=== PATIENT | male | born 1975 | race Asian ===

== ENCOUNTER 2020-05-25 12:56 | Inpatient (IN) | payer SELFPAY ==
[~2020-05-25] VITALS: Ht 172.7 cm; Wt 80.9 kg
[2020-05-25] MEDS ORDERED: LEVETIRACETAM 500MG PREMIX 100 ML IV ONE (13:30)
[2020-05-25] MEDS ORDERED: SODIUM CHLORIDE 0.9% 1,000 ML IV ONE (13:30)
[2020-05-25] MEDS ORDERED: INSULIN REGULAR (HUMULIN R) UD 100 UNITS/ML SYR SUBCUT ONE ×2 (13:30→15:30)
[2020-05-25] MEDS ORDERED: DILTIAZEM HCL 5MG/ML 5ML VIAL IV ONE ×2 (13:30→15:30)
[2020-05-25] MEDS ORDERED: LORAZEPAM 2MG/ML CPJ IV ONE (13:30)
[2020-05-25] MEDS ORDERED: INSULIN REGULAR (HUMULIN R) 300UNITS/3ML VIAL SUBCUT NR (14:15)
[2020-05-25 14:22] LABS: BASOPHILS % 1.1 % (0.0-2.0); EOSINOPHILS % 9.9 % (0.0-5.0); HEMATOCRIT. 46.3 % (42.0-52.0); HEMOGLOBIN. 16.2 g/dL (14.0-18.0); LYMPHOCYTES % 29.2 % (20.0-50.0); MEAN CORPUSCULAR HEMOGLOBIN 29.8 pg (28.0-32.0); MEAN CORPUSCULAR VOLUME 84.9 fL (80.0-94.0); MONOCYTES % 5.6 % (2.0-8.0); NEUTROPHILS % 54.2 % (40.0-76.0); PLATELET 226 x1000/uL (130-400); RED BLOOD CELL COUNT 5.45 mill/uL (4.7-6.1)
[2020-05-25 14:28] LABS: CHLORIDE 93 mEq/L (98-107)
[2020-05-25 14:32] LABS: CLARITY URINE CLEAR (CLEAR); COLOR URINE YELLOW (YELLOW); KETONES URINE NEGATIVE (NEGATIVE); LEUKOCYTE ESTERASE URINE NEGATIVE (NEGATIVE); NITRITE URINE NEGATIVE (NEGATIVE); OCCULT BLOOD URINE 1+ (NEGATIVE); PH URINE 5.5 (4.5-8.0); PROTEIN URINE 3+ (NEGATIVE); SPECIFIC GRAVITY URINE 1.029 (1.005-1.030); UROBILINOGEN URINE 0.2 E.U./dL (0.2-1.0)
[2020-05-25 14:34] LABS: ETHANOL BLOOD < 10 mg/dL
[2020-05-25 14:41] LABS: INR 0.9; PARTIAL THROMBOPLASTIN TIME 23.3 sec (23.4-31.0); PROTHROMBIN TIME 9.9 sec (9.6-11.0)
[2020-05-25 15:15] LABS: *AMPHETAMINES SCREEN URINE NEGATIVE (NEGATIVE); *BARBITURATES SCREEN URINE NEGATIVE (NEGATIVE); *BENZODIAZEPINES SCREEN URINE PRESUMTIVE POSITIVE (NEGATIVE); *COCAINE SCREEN URINE NEGATIVE (NEGATIVE); CANNABINOID URINE SCREEN NEGATIVE (NEGATIVE); METHADONE URINE SCREEN NEGATIVE (NEGATIVE); OPIATES URINE SCREEN NEGATIVE (NEGATIVE); PHENCYCLIDINE URINE SCREEN NEGATIVE (NEGATIVE)
[2020-05-25] MEDS ORDERED: KCL 20MEQ/100ML PREMIX 100 ML IV ONE (15:30)
[2020-05-25] MEDS ORDERED: NITROGLYCERIN 50MG PREMIX 250 ML IV ONE ×2 (16:45→22:45)
[2020-05-25] MEDS ORDERED: INSULIN REGULAR (HUMULIN R) 300UNITS/3ML VIAL SUBCUT ONE (17:00)
[2020-05-25] MEDS ORDERED: ACETAMINOPHEN 650MG SUPP PR PRN (18:15)
[2020-05-25] MEDS ORDERED: ONDANSETRON HCL 4MG/2ML INJ IV PRN (18:15)
[2020-05-25] MEDS: LORAZEPAM 2MG/ML CPJ IV PRN (18:22)
[2020-05-25] MEDS: DEXT 5%/0.45% NACL KCL 10MEQ/L 1,000 ML IV SCH (20:00)
[2020-05-26] MEDS: LORAZEPAM 2MG/ML CPJ IV PRN ×2 (00:53→10:11)
[2020-05-26] MEDS ORDERED: MORPHINE SULFATE 2 MG/ML CPJ (NOT FOR IM USE) IV PRN (01:30)
[2020-05-26] MEDS: LABETALOL 5MG/ML SYR 20 MG/4 ML SYRINGE IV PRN ×2 (02:38→10:11)
[2020-05-26] MEDS ORDERED: NITROGLYCERIN 50MG PREMIX 250 ML IV SCH (02:45)
[2020-05-26 05:18] LABS: BASOPHILS % 0.2 % (0.0-2.0); HEMATOCRIT. 41.1 % (42.0-52.0); HEMOGLOBIN. 14.5 g/dL (14.0-18.0); LYMPHOCYTES % 8.4 % (20.0-50.0); MEAN CORPUSCULAR HEMOGLOBIN 29.8 pg (28.0-32.0); MEAN CORPUSCULAR VOLUME 84.7 fL (80.0-94.0); MEAN PLATELET VOLUME 7.8 fl (7.4-10.4); MONOCYTES % 5.7 % (2.0-8.0); NEUTROPHILS % 85.7 % (40.0-76.0); PLATELET 196 x1000/uL (130-400); RED BLOOD CELL COUNT 4.85 mill/uL (4.7-6.1); RED CELL DISTRIBUTION WIDTH 14.7 % (11.6-14.6)
[2020-05-26 05:27] LABS: CHLORIDE 99 mEq/L (98-107)
[2020-05-26 05:34] LABS: LDL CHOLESTEROL 85 mg/dL (5-100)
[2020-05-26 05:35] LABS: HDL CHOLESTEROL 66 mg/dL (40-59)
[2020-05-26] MEDS: DEXT 5%/0.45% NACL KCL 10MEQ/L 1,000 ML IV SCH (07:35)
[2020-05-26] MEDS: AMLODIPINE 10MG TABLET PO SCH (09:00)
[2020-05-26] MEDS: LISINOPRIL 20MG TABLET PO SCH (09:00)
[2020-05-26] MEDS: INSULIN LISPRO (HIGH DOSE) 100 UNITS/ML SUBCUT SCH ×4 (09:00→21:25)
[2020-05-26] MEDS ORDERED: DEXTROSE 50% WATER 50ML SYRINGE IV PRN (09:00)
[2020-05-26 11:37] LABS: BASOPHILS % 0.5 % (0.0-2.0); EOSINOPHILS % 0.1 % (0.0-5.0); HEMATOCRIT. 40.3 % (42.0-52.0); HEMOGLOBIN. 14.2 g/dL (14.0-18.0); LYMPHOCYTES % 9.9 % (20.0-50.0); MEAN CORPUSCULAR HEMOGLOBIN 30.1 pg (28.0-32.0); MEAN CORPUSCULAR VOLUME 85.6 fL (80.0-94.0); MEAN PLATELET VOLUME 7.7 fl (7.4-10.4); MONOCYTES % 6.8 % (2.0-8.0); NEUTROPHILS % 82.7 % (40.0-76.0); PLATELET 194 x1000/uL (130-400); RED CELL DISTRIBUTION WIDTH 14.8 % (11.6-14.6)
[2020-05-26 11:48] LABS: CHLORIDE 97 mEq/L (98-107)
[2020-05-26] MEDS ORDERED: POTASSIUM CHLORIDE INJ 40 MEQ in DEXT 5% WATER 250 ML IV NR (12:00)
[2020-05-26] MEDS ORDERED: LEVETIRACETAM 500 MG in SODIUM CHLORIDE 0.9% 100 ML IV SCH (12:00)
[2020-05-26] MEDS: BLOOD SUGAR DIAGNOSTIC STRIP TEST SCH ×3 (12:26→21:18)
[2020-05-26] MEDS: LEVETIRACETAM 500MG PREMIX 100 ML IV SCH ×2 (12:54→21:00)
[2020-05-26] MEDS: ENOXAPARIN 40MG/0.4ML SYR SUBCUT SCH (12:56)
[2020-05-26] MEDS: ATORVASTATIN CALCIUM 40MG TABLET PO SCH (21:00)
[2020-05-26] MEDS: INSULIN GLARGINE UD 100 UNITS/ML SYR SUBCUT SCH (22:10)
[2020-05-27] VITALS (8 sets, daily range): BP systolic 136–162; BP diastolic 76–100
[2020-05-27] MEDS: DEXT 5%/0.45% NACL KCL 10MEQ/L 1,000 ML IV SCH ×3 (05:28→22:56)
[2020-05-27] MEDS: BLOOD SUGAR DIAGNOSTIC STRIP TEST SCH ×4 (06:46→21:00)
[2020-05-27] MEDS: INSULIN LISPRO (HIGH DOSE) 100 UNITS/ML SUBCUT SCH ×4 (06:46→21:00)
[2020-05-27] MEDS: ASPIRIN 81MG TABLET PO SCH (08:47)
[2020-05-27] MEDS: THIAMINE HCL 100MG TABLET PO SCH (08:47)
[2020-05-27] MEDS: LEVETIRACETAM 500MG PREMIX 100 ML IV SCH ×2 (08:47→22:53)
[2020-05-27] MEDS: LISINOPRIL 20MG TABLET PO SCH (08:48)
[2020-05-27] MEDS: AMLODIPINE 10MG TABLET PO SCH (09:30)
[2020-05-27] MEDS: INSULIN GLARGINE UD 100 UNITS/ML SYR SUBCUT SCH ×2 (10:00→10:34)
[2020-05-27] MEDS: ENOXAPARIN 40MG/0.4ML SYR SUBCUT SCH (13:11)
[2020-05-27] MEDS ORDERED: POTASSIUM CHLORIDE INJ 40 MEQ in DEXT 5% WATER 250 ML IV SCH (15:00)
[2020-05-27] MEDS: ATORVASTATIN CALCIUM 40MG TABLET PO SCH (20:55)
[2020-05-28] VITALS (13 sets, daily range): BP systolic 137–183; BP diastolic 83–108
[2020-05-28] MEDS: BLOOD SUGAR DIAGNOSTIC STRIP TEST SCH ×4 (08:12→21:34)
[2020-05-28] MEDS: INSULIN LISPRO (HIGH DOSE) 100 UNITS/ML SUBCUT SCH ×4 (08:18→21:40)
[2020-05-28] MEDS: LISINOPRIL 20MG TABLET PO SCH (08:25)
[2020-05-28] MEDS: THIAMINE HCL 100MG TABLET PO SCH (08:25)
[2020-05-28] MEDS: LEVETIRACETAM 500MG PREMIX 100 ML IV SCH ×2 (08:25→21:23)
[2020-05-28] MEDS: AMLODIPINE 10MG TABLET PO SCH (08:26)
[2020-05-28] MEDS: ASPIRIN 81MG TABLET PO SCH (08:26)
[2020-05-28] MEDS: LABETALOL 5MG/ML SYR 20 MG/4 ML SYRINGE IV PRN (09:17)
[2020-05-28] MEDS ORDERED: POTASSIUM CHLORIDE INJ 40 MEQ in DEXT 5% WATER 250 ML IV SCH (11:00)
[2020-05-28] MEDS ORDERED: LIDOCAINE HCL 1% 20ML VIAL (Pyxis) INJ ONE (11:01)
[2020-05-28] MEDS ORDERED: SODIUM BICARBONATE 4% (2.4MEQ) 5ML VIAL IV ONE (11:01)
[2020-05-28] MEDS: INSULIN GLARGINE UD 100 UNITS/ML SYR SUBCUT SCH ×2 (12:03→21:53)
[2020-05-28] MEDS: ENOXAPARIN 40MG/0.4ML SYR SUBCUT SCH (12:04)
[2020-05-28] MEDS: DEXT 5%/0.45% NACL KCL 10MEQ/L 1,000 ML IV SCH (15:36)
[2020-05-28 15:56] LABS: GLUCOSE CSF 100 mg/dL (41-75)
[2020-05-28] MEDS: ATORVASTATIN CALCIUM 40MG TABLET PO SCH (21:24)
[2020-05-28] MEDS: CLONIDINE 0.1MG TABLET PO PRN (21:52)
[2020-05-29] VITALS (11 sets, daily range): BP systolic 127–172; BP diastolic 77–101
[2020-05-29] MEDS: DEXT 5%/0.45% NACL KCL 10MEQ/L 1,000 ML IV SCH ×2 (02:26→15:35)
[2020-05-29] MEDS: BLOOD SUGAR DIAGNOSTIC STRIP TEST SCH ×4 (08:15→20:40)
[2020-05-29] MEDS: LISINOPRIL 20MG TABLET PO SCH (08:33)
[2020-05-29] MEDS: ASPIRIN 81MG TABLET PO SCH (08:33)
[2020-05-29] MEDS: AMLODIPINE 10MG TABLET PO SCH (08:34)
[2020-05-29] MEDS: INSULIN LISPRO (HIGH DOSE) 100 UNITS/ML SUBCUT SCH ×4 (08:37→20:49)
[2020-05-29] MEDS: THIAMINE HCL 100MG TABLET PO SCH (08:44)
[2020-05-29] MEDS: LEVETIRACETAM 500MG PREMIX 100 ML IV SCH ×2 (08:47→20:40)
[2020-05-29] MEDS: INSULIN GLARGINE UD 100 UNITS/ML SYR SUBCUT SCH ×2 (10:21→21:17)
[2020-05-29] MEDS: CLONIDINE 0.1MG TABLET PO PRN (10:45)
[2020-05-29] MEDS: ENOXAPARIN 40MG/0.4ML SYR SUBCUT SCH (12:34)
[2020-05-29] MEDS: ATORVASTATIN CALCIUM 40MG TABLET PO SCH (20:50)
[2020-05-30] VITALS (11 sets, daily range): BP systolic 146–181; BP diastolic 89–108
[2020-05-30] MEDS: CLONIDINE 0.1MG TABLET PO PRN (02:53)
[2020-05-30] MEDS ORDERED: DEXT 5%/0.45% NACL KCL 10MEQ/L 1,000 ML IV SCH (06:00)
[2020-05-30] MEDS: BLOOD SUGAR DIAGNOSTIC STRIP TEST SCH ×2 (08:30→12:45)
[2020-05-30] MEDS: ASPIRIN 81MG TABLET PO SCH (09:45)
[2020-05-30] MEDS: THIAMINE HCL 100MG TABLET PO SCH (09:46)
[2020-05-30] MEDS: AMLODIPINE 10MG TABLET PO SCH (09:46)
[2020-05-30] MEDS: LISINOPRIL 20MG TABLET PO SCH (09:46)
[2020-05-30] MEDS: LEVETIRACETAM 500MG PREMIX 100 ML IV SCH (09:51)
[2020-05-30] MEDS: INSULIN GLARGINE UD 100 UNITS/ML SYR SUBCUT SCH (10:54)
[2020-05-30] MEDS ORDERED: IOHEXOL-350 100 ML BOTTLE ONE (11:11)
[2020-05-30] MEDS: ENOXAPARIN 40MG/0.4ML SYR SUBCUT SCH (13:18)
[2020-05-30] MEDS: INSULIN LISPRO (HIGH DOSE) 100 UNITS/ML SUBCUT SCH (13:24)
== END 2020-05-30 16:25 | disposition home or self-care (01) | DRG 53 ==
LOC: ER 13:09 → MICUSO 17:16 → EDBEDREQTM 20:37 → 5EST 05-27 09:53
PROVIDERS: ADMIT Hospitalist; ATTEND Hospitalist
PROC: 009U3ZX Drainage of Spinal Canal, Percutaneous Approach, Diagnostic (ICD-10-PCS; principal; 2020-05-28)
PROC: B01B1ZZ Fluoroscopy of Spinal Cord using Low Osmolar Contrast (ICD-10-PCS; 2020-05-28)
DX: G40.89 Other seizures (principal); I16.0 Hypertensive urgency; I21.4 Non-ST elevation (NSTEMI) myocardial infarction; E11.65 Type 2 diabetes mellitus with hyperglycemia; E87.5 Hyperkalemia; G31.9 Degenerative disease of nervous system, unspecified; Z78.1 Physical restraint status; N17.9 Acute kidney failure, unspecified; I67.4 Hypertensive encephalopathy; I10 Essential (primary) hypertension; E87.6 Hypokalemia
CPT/HCPCS: 36415; 62270; 70496; 70551; 71045; 77003; 80048; 80053; 80061; 80305; 80320; 81003; 82010; 82945; 82962; 83036; 83605; 83735; 83880; 84132; 84145; 84157; 84443; 84484; 85025; 87070; 87210; 87426; 92610; 93005; 93306; 95816; 96365; 97162; 99291; J1650; J1815; J1953; J2060; J2270; J2405; J3480; J3490; J7030; J7040; J7060; Q9967; G0480

== ENCOUNTER 2021-05-10 18:23 | Inpatient (IN) | payer MEDICAID, OTHER ==
[2021-05-10] VITALS (10 sets, daily range): BP systolic 105–172; BP diastolic 72–114
[~2021-05-10] VITALS: Ht 165.1 cm; Wt 83.9 kg
[2021-05-10] MEDS ORDERED: ETOMIDATE 2MG/ML 10ML VIAL IV ONE (18:45)
[2021-05-10] MEDS ORDERED: NALOXONE HCL 0.4 MG/ML 1ML VIAL IV PRN (18:45)
[2021-05-10] MEDS ORDERED: SUCCINYLCHOLINE CHLORIDE 200MG/10ML IV ONE (18:45)
[2021-05-10] MEDS ORDERED: SODIUM CHLORIDE 0.9% 1,000 ML IV ONE (18:45)
[2021-05-10] MEDS ORDERED: NALOXONE HCL 1 MG/ML 2ML VIAL ONE (18:58)
[2021-05-10] MEDS ORDERED: LORAZEPAM 2MG/ML CPJ ONE (19:00)
[2021-05-10 19:03] LABS: HEMATOCRIT. 48.8 % (42.0-52.0); HEMOGLOBIN. 17.1 g/dL (14.0-18.0); MEAN CORPUSCULAR HEMOGLOBIN 31.5 pg (28.0-32.0); MEAN CORPUSCULAR VOLUME 89.9 fL (80.0-94.0); MEAN PLATELET VOLUME 8.3 fl (7.4-10.4); PLATELET 287 x1000/uL (130-400); RED BLOOD CELL COUNT 5.43 mill/uL (4.7-6.1); RED CELL DISTRIBUTION WIDTH 13.3 % (11.6-14.6)
[2021-05-10 19:10] LABS: CHLORIDE 102 mEq/L (98-107)
[2021-05-10 19:12] LABS: PROTHROMBIN TIME 11.1 sec (9.6-11.0)
[2021-05-10 19:13] LABS: ETHANOL BLOOD < 10 mg/dL
[2021-05-10] MEDS ORDERED: LEVETIRACETAM 500MG PREMIX 100 ML IV ONE (19:15)
[2021-05-10] MEDS ORDERED: PROPOFOL 10MG/ML 100ML 100 ML IV ONE (19:15)
[2021-05-10 19:17] LABS: BETA HYDROXYBUTYRATE 1.1 mMol/L (0.0-0.3)
[2021-05-10 19:18] LABS: CREATINE KINASE 234 IU/L (39-308)
[2021-05-10] MEDS ORDERED: MANNITOL 12.5G (25%) VIAL 50ML IV ONE (19:30)
[2021-05-10] MEDS ORDERED: NICARDIPINE 40MG/200ML PREMIX 200 ML IV SCH (19:30)
[2021-05-10] MEDS ORDERED: IOHEXOL-350 100 ML BOTTLE ONE (19:58)
[2021-05-10 19:59] LABS: PLATELET ESTIMATE NORMAL
[2021-05-10 20:27] LABS: BG BASE EXCESS -7.9 mmol/L (-2.0-2.0); BG CARBOXYHEMOGLOBIN 0.5 % (0.5-1.5); BG DEOXYHEMOGLOBIN 0.4 % (0.0-5.0); BG FRACTION INSPIRED OXYGEN 100; BG HCO3 ACT 15.5 mmol/L (22.0-26.0); BG METHEMOGLOBIN 0.6 % (0.0-1.5); BG OXYGEN SATURATION 99.6 % (92.0-98.5); BG OXYHEMOGLOBIN 98.5 % (94.0-97.0); BG PCO2 27.5 mmHg (35.0-45.0); BG PO2 330.9 mmHg (75.0-100.0); BG SAMPLE SITE LEFT RADIAL; BG TOTAL HEMOGLOBIN 16.3 g/dL (12.0-18.0); BG VENT MODE VENT - AC
[2021-05-10 20:31] LABS: CLARITY URINE CLEAR (CLEAR); COLOR URINE YELLOW (YELLOW); KETONES URINE NEGATIVE (NEGATIVE); LEUKOCYTE ESTERASE URINE NEGATIVE (NEGATIVE); NITRITE URINE NEGATIVE (NEGATIVE); OCCULT BLOOD URINE 1+ (NEGATIVE); PROTEIN URINE 3+ (NEGATIVE); SPECIFIC GRAVITY URINE 1.019 (1.005-1.030); UROBILINOGEN URINE 0.2 E.U./dL (0.2-1.0)
[2021-05-10 20:44] LABS: *BENZODIAZEPINES SCREEN URINE NEGATIVE (NEGATIVE); *COCAINE SCREEN URINE NEGATIVE (NEGATIVE); METHADONE URINE SCREEN NEGATIVE (NEGATIVE); OPIATES URINE SCREEN NEGATIVE (NEGATIVE)
[2021-05-10 20:46] LABS: *AMPHETAMINES SCREEN URINE NEGATIVE (NEGATIVE); *BARBITURATES SCREEN URINE NEGATIVE (NEGATIVE); CANNABINOID URINE SCREEN NEGATIVE (NEGATIVE); PHENCYCLIDINE URINE SCREEN NEGATIVE (NEGATIVE)
[2021-05-10] MEDS ORDERED: NICARDIPINE 100 MG in SODIUM CHLORIDE 0.9% 60 ML IV PRN (21:00)
[2021-05-10] MEDS ORDERED: DEXTROSE 50% WATER 50ML SYRINGE IV PRN (21:15)
[2021-05-10] MEDS ORDERED: PROPOFOL 10MG/ML 100ML 100 ML IV PRN ×2 (21:15→22:15)
[2021-05-10] MEDS ORDERED: SODIUM CHLORIDE 0.9% 1000ML BAG (SEPSIS BOLUS) IV ONE (22:00)
[2021-05-10] MEDS ORDERED: SODIUM CHLORIDE 0.9% 1,000 ML IV SCH (22:15)
[2021-05-10] MEDS: NICARDIPINE 100 MG in SODIUM CHLORIDE 0.9% 60 ML IV PRN (22:20)
[2021-05-10] MEDS: SODIUM CHLORIDE 0.9% 1,000 ML IV SCH (22:58)
[2021-05-10] MEDS ORDERED: METF-873 MT (23:12)
[2021-05-10] MEDS ORDERED: GLIP5TAB12 MT (23:12)
[2021-05-11] VITALS (95 sets, daily range): BP systolic 109–155; BP diastolic 64–101
[2021-05-11 02:19] LABS: BASOPHILS % 0.3 % (0.0-2.0); EOSINOPHILS % 0.1 % (0.0-5.0); HEMATOCRIT. 48.5 % (42.0-52.0); HEMOGLOBIN. 16.5 g/dL (14.0-18.0); LYMPHOCYTES % 10.1 % (20.0-50.0); MEAN CORPUSCULAR HEMOGLOBIN 30.6 pg (28.0-32.0); MEAN CORPUSCULAR VOLUME 89.7 fL (80.0-94.0); MEAN PLATELET VOLUME 8.1 fl (7.4-10.4); MONOCYTES % 4.1 % (2.0-8.0); NEUTROPHILS % 85.4 % (40.0-76.0); PLATELET 262 x1000/uL (130-400); RED CELL DISTRIBUTION WIDTH 13.3 % (11.6-14.6)
[2021-05-11] MEDS: BLOOD SUGAR DIAGNOSTIC STRIP TEST SCH ×4 (06:34→21:03)
[2021-05-11] MEDS: INSULIN LISPRO 100 UNITS/ML SUBCUT SCH ×4 (06:35→21:45)
[2021-05-11] MEDS: PANTOPRAZOLE SODIUM 40 MG/VIAL IV SCH (08:15)
[2021-05-11] MEDS ORDERED: LEVETIRACETAM 500MG PREMIX 100 ML IV SCH (09:00)
[2021-05-11] MEDS ORDERED: INSULIN GLARGINE UD 100 UNITS/ML SYR SUBCUT SCH (10:00)
[2021-05-11] MEDS ORDERED: POTASSIUM CHLORIDE INJ 40 MEQ in DEXT 5% WATER 250 ML IV SCH (11:00)
[2021-05-11] MEDS ORDERED: PROPOFOL 10MG/ML 100ML 100 ML IV PRN (11:30)
[2021-05-11] MEDS ORDERED: NALOXONE HCL 0.4MG/ML VIAL IV PRN (12:30)
[2021-05-11] MEDS: PIPERACILLIN/TAZOBACTAM 3.375 G in DEXTROSE 5% WATER 50 ML IV SCH ×2 (14:01→21:45)
[2021-05-11] MEDS: SODIUM CHLORIDE 0.9% 1,000 ML IV SCH (15:35)
[2021-05-11] MEDS: NICARDIPINE 100 MG in SODIUM CHLORIDE 0.9% 60 ML IV PRN (17:45)
[2021-05-11] MEDS: LEVETIRACETAM 500MG PREMIX 100 ML IV SCH (21:03)
[2021-05-11] MEDS: INSULIN GLARGINE UD 100 UNITS/ML SYR SUBCUT SCH (21:46)
[2021-05-12] VITALS (98 sets, daily range): BP systolic 103–164; BP diastolic 56–101
[2021-05-12] MEDS: NICARDIPINE 100 MG in SODIUM CHLORIDE 0.9% 60 ML IV PRN ×3 (03:37→21:17)
[2021-05-12 05:28] LABS: BASOPHILS % 0.4 % (0.0-2.0); EOSINOPHILS % 1.2 % (0.0-5.0); HEMATOCRIT. 41.2 % (42.0-52.0); HEMOGLOBIN. 14.3 g/dL (14.0-18.0); LYMPHOCYTES % 7.3 % (20.0-50.0); MEAN CORPUSCULAR HEMOGLOBIN 31.2 pg (28.0-32.0); MEAN PLATELET VOLUME 8.8 fl (7.4-10.4); MONOCYTES % 3.5 % (2.0-8.0); NEUTROPHILS % 87.6 % (40.0-76.0); PLATELET 257 x1000/uL (130-400); RED BLOOD CELL COUNT 4.58 mill/uL (4.7-6.1); RED CELL DISTRIBUTION WIDTH 13.3 % (11.6-14.6)
[2021-05-12] MEDS: MORPHINE SULFATE 2 MG/ML CPJ (NOT FOR IM USE) IV PRN ×2 (05:42→10:31)
[2021-05-12 05:44] LABS: PHOSPHORUS 3.4 mg/dL (2.5-4.9)
[2021-05-12] MEDS: BLOOD SUGAR DIAGNOSTIC STRIP TEST SCH ×4 (06:18→21:20)
[2021-05-12] MEDS: PIPERACILLIN/TAZOBACTAM 3.375 G in DEXTROSE 5% WATER 50 ML IV SCH ×3 (06:22→21:19)
[2021-05-12] MEDS: INSULIN LISPRO 100 UNITS/ML SUBCUT SCH ×4 (06:24→21:00)
[2021-05-12] MEDS: SODIUM CHLORIDE 0.9% 1,000 ML IV SCH (07:50)
[2021-05-12] MEDS: PANTOPRAZOLE SODIUM 40 MG/VIAL IV SCH (09:04)
[2021-05-12] MEDS: LEVETIRACETAM 500MG PREMIX 100 ML IV SCH ×2 (09:05→21:19)
[2021-05-12] MEDS: INSULIN GLARGINE UD 100 UNITS/ML SYR SUBCUT SCH ×2 (09:06→21:20)
[2021-05-12] MEDS ORDERED: DIPHENHYDRAMINE 50MG/ML VIAL IV NR (09:45)
[2021-05-12] MEDS ORDERED: ACETAMINOPHEN 650MG SUPP PR PRN ×2 (09:45)
[2021-05-12 10:13] LABS: BG BASE EXCESS -4.3 mmol/L (-2.0-2.0); BG CARBOXYHEMOGLOBIN 0.7 % (0.5-1.5); BG DEOXYHEMOGLOBIN 5.3 % (0.0-5.0); BG FRACTION INSPIRED OXYGEN 40; BG METHEMOGLOBIN 0.3 % (0.0-1.5); BG OXYGEN SATURATION 94.6 % (92.0-98.5); BG OXYHEMOGLOBIN 93.7 % (94.0-97.0); BG PCO2 27.1 mmHg (35.0-45.0); BG PH 7.439 (7.350-7.450); BG PO2 70.3 mmHg (75.0-100.0); BG SAMPLE SITE RIGHT RADIAL; BG TOTAL HEMOGLOBIN 16.4 g/dL (12.0-18.0); BG VENT MODE VENT - AC
[2021-05-12] MEDS ORDERED: POTASSIUM CHLORIDE INJ 40 MEQ in DEXT 5% WATER 250 ML IV SCH (11:00)
[2021-05-12] MEDS: ESMOLOL 2500MG PREMIX 250 ML IV PRN ×2 (11:03→21:19)
[2021-05-13] VITALS (93 sets, daily range): BP systolic 103–155; BP diastolic 54–90
[2021-05-13] MEDS: SODIUM CHLORIDE 0.9% 1,000 ML IV SCH ×2 (00:14→18:47)
[2021-05-13 05:33] LABS: BASOPHILS % 0.6 % (0.0-2.0); EOSINOPHILS % 1.1 % (0.0-5.0); HEMATOCRIT. 37.7 % (42.0-52.0); LYMPHOCYTES % 11.6 % (20.0-50.0); MEAN CORPUSCULAR HEMOGLOBIN 31.1 pg (28.0-32.0); MEAN CORPUSCULAR VOLUME 89.6 fL (80.0-94.0); MEAN PLATELET VOLUME 8.5 fl (7.4-10.4); MONOCYTES % 3.9 % (2.0-8.0); NEUTROPHILS % 82.8 % (40.0-76.0); PLATELET 235 x1000/uL (130-400); RED CELL DISTRIBUTION WIDTH 13.5 % (11.6-14.6)
[2021-05-13 05:51] LABS: PHOSPHORUS 4.1 mg/dL (2.5-4.9)
[2021-05-13] MEDS: INSULIN LISPRO 100 UNITS/ML SUBCUT SCH ×4 (06:09→21:42)
[2021-05-13] MEDS: BLOOD SUGAR DIAGNOSTIC STRIP TEST SCH ×4 (06:09→21:36)
[2021-05-13] MEDS: PIPERACILLIN/TAZOBACTAM 3.375 G in DEXTROSE 5% WATER 50 ML IV SCH ×3 (06:11→21:25)
[2021-05-13] MEDS: PANTOPRAZOLE SODIUM 40 MG/VIAL IV SCH (09:12)
[2021-05-13] MEDS: LEVETIRACETAM 500MG PREMIX 100 ML IV SCH ×2 (09:13→21:25)
[2021-05-13] MEDS: INSULIN GLARGINE UD 100 UNITS/ML SYR SUBCUT SCH ×2 (09:15→21:43)
[2021-05-13] MEDS: ESMOLOL 2500MG PREMIX 250 ML IV PRN ×2 (09:56→21:27)
[2021-05-14] VITALS (92 sets, daily range): BP systolic 121–169; BP diastolic 72–103
[2021-05-14 06:24] LABS: BASOPHILS % 0.5 % (0.0-2.0); EOSINOPHILS % 2.7 % (0.0-5.0); HEMATOCRIT. 41.1 % (42.0-52.0); HEMOGLOBIN. 14.2 g/dL (14.0-18.0); MEAN CORPUSCULAR HEMOGLOBIN 30.9 pg (28.0-32.0); MONOCYTES % 4.2 % (2.0-8.0); NEUTROPHILS % 81.6 % (40.0-76.0); PLATELET 252 x1000/uL (130-400); RED BLOOD CELL COUNT 4.62 mill/uL (4.7-6.1); RED CELL DISTRIBUTION WIDTH 13.3 % (11.6-14.6)
[2021-05-14] MEDS: PIPERACILLIN/TAZOBACTAM 3.375 G in DEXTROSE 5% WATER 50 ML IV SCH ×3 (06:44→21:29)
[2021-05-14] MEDS: BLOOD SUGAR DIAGNOSTIC STRIP TEST SCH ×4 (06:45→22:00)
[2021-05-14] MEDS: INSULIN LISPRO 100 UNITS/ML SUBCUT SCH ×4 (06:45→22:00)
[2021-05-14 06:54] LABS: PHOSPHORUS 3.2 mg/dL (2.5-4.9)
[2021-05-14] MEDS: MORPHINE SULFATE 2 MG/ML CPJ (NOT FOR IM USE) IV PRN ×2 (07:19→23:50)
[2021-05-14] MEDS: PANTOPRAZOLE SODIUM 40 MG/VIAL IV SCH (09:03)
[2021-05-14] MEDS: INSULIN GLARGINE UD 100 UNITS/ML SYR SUBCUT SCH ×2 (09:03→22:05)
[2021-05-14] MEDS: LEVETIRACETAM 500MG PREMIX 100 ML IV SCH ×2 (09:03→21:30)
[2021-05-14] MEDS: ESMOLOL 2500MG PREMIX 250 ML IV PRN ×4 (09:03→21:55)
[2021-05-14] MEDS: SODIUM CHLORIDE 0.9% 1,000 ML IV SCH (09:03)
[2021-05-14] MEDS: IPRATROPIUM/ALBUTEROL 0.5-3(2.5)MG/3ML NEB HHN SCH ×2 (10:00→16:05)
[2021-05-14] MEDS: DEXTROSE 5% WATER 1,000 ML IV SCH (19:54)
[2021-05-14] MEDS: HYDRALAZINE HCL 25MG TABLET NG SCH (21:30)
[2021-05-14] MEDS: ACETAMINOPHEN 650MG/20.3ML UDC PO PRN (23:08)
[2021-05-15] VITALS (96 sets, daily range): BP systolic 110–164; BP diastolic 59–101
[2021-05-15] MEDS: ESMOLOL 2500MG PREMIX 250 ML IV PRN ×2 (01:04→07:42)
[2021-05-15] MEDS: IPRATROPIUM/ALBUTEROL 0.5-3(2.5)MG/3ML NEB HHN SCH ×3 (01:34→15:45)
[2021-05-15] MEDS: PIPERACILLIN/TAZOBACTAM 3.375 G in DEXTROSE 5% WATER 50 ML IV SCH ×3 (05:57→21:20)
[2021-05-15] MEDS: HYDRALAZINE HCL 25MG TABLET NG SCH (05:57)
[2021-05-15] MEDS: BLOOD SUGAR DIAGNOSTIC STRIP TEST SCH ×4 (05:58→21:18)
[2021-05-15] MEDS: INSULIN LISPRO 100 UNITS/ML SUBCUT SCH ×4 (06:01→21:26)
[2021-05-15 06:06] LABS: BASOPHILS % 0.6 % (0.0-2.0); EOSINOPHILS % 3.6 % (0.0-5.0); HEMATOCRIT. 39.2 % (42.0-52.0); HEMOGLOBIN. 13.3 g/dL (14.0-18.0); MEAN CORPUSCULAR HEMOGLOBIN 30.8 pg (28.0-32.0); MEAN CORPUSCULAR VOLUME 90.7 fL (80.0-94.0); MEAN PLATELET VOLUME 8.5 fl (7.4-10.4); MONOCYTES % 6.4 % (2.0-8.0); NEUTROPHILS % 75.4 % (40.0-76.0); PLATELET 266 x1000/uL (130-400); RED BLOOD CELL COUNT 4.32 mill/uL (4.7-6.1); RED CELL DISTRIBUTION WIDTH 13.4 % (11.6-14.6)
[2021-05-15 07:16] LABS: PHOSPHORUS 3.5 mg/dL (2.5-4.9)
[2021-05-15 08:37] LABS: BG BASE EXCESS -6.7 mmol/L (-2.0-2.0); BG CARBOXYHEMOGLOBIN 0.3 % (0.5-1.5); BG DEOXYHEMOGLOBIN 6.4 % (0.0-5.0); BG HCO3 ACT 15.4 mmol/L (22.0-26.0); BG METHEMOGLOBIN 0.3 % (0.0-1.5); BG OXYGEN SATURATION 93.6 % (92.0-98.5); BG PCO2 23.5 mmHg (35.0-45.0); BG PH 7.435 (7.350-7.450); BG PO2 67.2 mmHg (75.0-100.0); BG SAMPLE SITE LEFT RADIAL; BG TOTAL HEMOGLOBIN 14.2 g/dL (12.0-18.0); BG VENT MODE VENT - AC
[2021-05-15] MEDS: INSULIN GLARGINE UD 100 UNITS/ML SYR SUBCUT SCH ×2 (09:21→21:20)
[2021-05-15] MEDS: PANTOPRAZOLE SODIUM 40 MG/VIAL IV SCH (09:22)
[2021-05-15] MEDS: LEVETIRACETAM 500MG PREMIX 100 ML IV SCH ×2 (09:22→21:19)
[2021-05-15] MEDS: AMLODIPINE 10MG TABLET PO SCH (09:50)
[2021-05-15] MEDS ORDERED: POTASSIUM CHLORIDE 20MEQ TABLET SR PO SCH (10:00)
[2021-05-15] MEDS: MORPHINE SULFATE 2 MG/ML CPJ (NOT FOR IM USE) IV PRN (10:42)
[2021-05-15] MEDS ORDERED: CLONIDINE HCL 0.2MG/24HR PATCH TD SCH (13:00)
[2021-05-15] MEDS ORDERED: POTASSIUM CHLORIDE 20MEQ/PACKET PO NR (14:00)
[2021-05-15] MEDS: HYDRALAZINE HCL 100MG TABLET NG SCH ×2 (14:19→21:19)
[2021-05-15] MEDS: NICARDIPINE 100 MG in SODIUM CHLORIDE 0.9% 60 ML IV PRN (15:25)
[2021-05-15] MEDS: DEXTROSE 5% WATER 1,000 ML IV SCH (18:48)
[2021-05-16] VITALS (100 sets, daily range): BP systolic 105–163; BP diastolic 57–116
[2021-05-16] MEDS: NICARDIPINE 100 MG in SODIUM CHLORIDE 0.9% 60 ML IV PRN ×3 (01:00→23:51)
[2021-05-16 05:27] LABS: HEMATOCRIT. 42.7 % (42.0-52.0); HEMOGLOBIN. 14.8 g/dL (14.0-18.0); MEAN CORPUSCULAR HEMOGLOBIN 30.7 pg (28.0-32.0); MEAN CORPUSCULAR VOLUME 88.6 fL (80.0-94.0); RED BLOOD CELL COUNT 4.82 mill/uL (4.7-6.1); RED CELL DISTRIBUTION WIDTH 13.2 % (11.6-14.6)
[2021-05-16] MEDS: ACETAMINOPHEN 650MG/20.3ML UDC PO PRN (05:41)
[2021-05-16] MEDS: HYDRALAZINE HCL 100MG TABLET NG SCH (05:42)
[2021-05-16] MEDS: PIPERACILLIN/TAZOBACTAM 3.375 G in DEXTROSE 5% WATER 50 ML IV SCH ×2 (05:42→14:55)
[2021-05-16] MEDS: BLOOD SUGAR DIAGNOSTIC STRIP TEST SCH ×4 (06:05→20:39)
[2021-05-16] MEDS: INSULIN LISPRO 100 UNITS/ML SUBCUT SCH ×4 (06:06→20:43)
[2021-05-16] MEDS: IPRATROPIUM/ALBUTEROL 0.5-3(2.5)MG/3ML NEB HHN SCH ×2 (07:32→15:34)
[2021-05-16] MEDS: PANTOPRAZOLE SODIUM 40 MG/VIAL IV SCH (08:14)
[2021-05-16] MEDS: AMLODIPINE 10MG TABLET PO SCH (08:14)
[2021-05-16] MEDS: LEVETIRACETAM 500MG PREMIX 100 ML IV SCH ×2 (08:14→20:29)
[2021-05-16 09:53] LABS: PLATELET ESTIMATE NORMAL
[2021-05-16 09:54] LABS: PLATELET 279 x1000/uL (130-400)
[2021-05-16] MEDS: DEXTROSE 5% WATER 1,000 ML IV SCH (10:09)
[2021-05-16] MEDS: INSULIN GLARGINE UD 100 UNITS/ML SYR SUBCUT SCH (10:09)
[2021-05-16 11:27] LABS: CLARITY URINE CLEAR (CLEAR); COLOR URINE YELLOW (YELLOW); KETONES URINE NEGATIVE (NEGATIVE); LEUKOCYTE ESTERASE URINE NEGATIVE (NEGATIVE); NITRITE URINE NEGATIVE (NEGATIVE); OCCULT BLOOD URINE 1+ (NEGATIVE); PROTEIN URINE 3+ (NEGATIVE); SPECIFIC GRAVITY URINE 1.021 (1.005-1.030); UROBILINOGEN URINE 0.2 E.U./dL (0.2-1.0)
[2021-05-16] MEDS: METOPROLOL TARTRATE 100MG TABLET PO SCH ×2 (11:31→20:27)
[2021-05-16] MEDS: GUAIFENESIN 200MG/10ML SUGAR FREE UDC PO PRN (11:44)
[2021-05-16] MEDS ORDERED: POTASSIUM CHLORIDE 20MEQ/PACKET PO SCH (12:00)
[2021-05-16] MEDS: MINOXIDIL 2.5MG TABLET PO SCH ×2 (12:46→20:27)
[2021-05-16 14:58] LABS: BG BASE EXCESS -6.4 mmol/L (-2.0-2.0); BG CARBOXYHEMOGLOBIN 0.4 % (0.5-1.5); BG DEOXYHEMOGLOBIN 7.6 % (0.0-5.0); BG HCO3 ACT 15.1 mmol/L (22.0-26.0); BG METHEMOGLOBIN 0.2 % (0.0-1.5); BG OXYGEN SATURATION 92.4 % (92.0-98.5); BG OXYHEMOGLOBIN 91.8 % (94.0-97.0); BG PCO2 21.7 mmHg (35.0-45.0); BG PO2 61.4 mmHg (75.0-100.0); BG SAMPLE SITE LEFT RADIAL; BG TOTAL HEMOGLOBIN 14.2 g/dL (12.0-18.0); BG VENT MODE VENT - AC
[2021-05-16] MEDS: MEROPENEM 1,000 MG in SODIUM CHLORIDE 0.9% 100 ML IV SCH (17:06)
[2021-05-16] MEDS ORDERED: INSULIN GLARGINE UD 100 UNITS/ML SYR SUBCUT SCH (22:00)
[2021-05-17] VITALS (95 sets, daily range): BP systolic 120–157; BP diastolic 61–89
[2021-05-17] MEDS: IPRATROPIUM/ALBUTEROL 0.5-3(2.5)MG/3ML NEB HHN SCH ×3 (00:01→16:35)
[2021-05-17] MEDS: MEROPENEM 1,000 MG in SODIUM CHLORIDE 0.9% 100 ML IV SCH ×2 (04:36→16:51)
[2021-05-17 05:34] LABS: BASOPHILS % 0.3 % (0.0-2.0); EOSINOPHILS % 3.3 % (0.0-5.0); HEMATOCRIT. 37.6 % (42.0-52.0); HEMOGLOBIN. 12.8 g/dL (14.0-18.0); LYMPHOCYTES % 10.3 % (20.0-50.0); MEAN CORPUSCULAR HEMOGLOBIN 30.8 pg (28.0-32.0); MEAN CORPUSCULAR VOLUME 90.4 fL (80.0-94.0); MEAN PLATELET VOLUME 8.7 fl (7.4-10.4); NEUTROPHILS % 78.1 % (40.0-76.0); PLATELET 300 x1000/uL (130-400); RED BLOOD CELL COUNT 4.16 mill/uL (4.7-6.1); RED CELL DISTRIBUTION WIDTH 13.2 % (11.6-14.6)
[2021-05-17 05:48] LABS: PHOSPHORUS 3.1 mg/dL (2.5-4.9)
[2021-05-17] MEDS: INSULIN LISPRO 100 UNITS/ML SUBCUT SCH ×4 (06:33→21:17)
[2021-05-17] MEDS: BLOOD SUGAR DIAGNOSTIC STRIP TEST SCH ×4 (06:33→21:18)
[2021-05-17] MEDS: PANTOPRAZOLE SODIUM 40 MG/VIAL IV SCH (08:22)
[2021-05-17] MEDS: MINOXIDIL 2.5MG TABLET PO SCH ×2 (08:22→21:13)
[2021-05-17] MEDS: AMLODIPINE 10MG TABLET PO SCH (08:22)
[2021-05-17] MEDS: METOPROLOL TARTRATE 100MG TABLET PO SCH ×2 (08:23→21:13)
[2021-05-17] MEDS: LEVETIRACETAM 500MG PREMIX 100 ML IV SCH ×2 (08:23→21:13)
[2021-05-17 09:20] LABS: BG CARBOXYHEMOGLOBIN 0.6 % (0.5-1.5); BG DEOXYHEMOGLOBIN 3.9 % (0.0-5.0); BG FRACTION INSPIRED OXYGEN 40; BG HCO3 ACT 16.6 mmol/L (22.0-26.0); BG METHEMOGLOBIN 0.2 % (0.0-1.5); BG OXYGEN SATURATION 96.1 % (92.0-98.5); BG OXYHEMOGLOBIN 95.3 % (94.0-97.0); BG PCO2 23.2 mmHg (35.0-45.0); BG PH 7.472 (7.350-7.450); BG PO2 77.5 mmHg (75.0-100.0); BG SAMPLE SITE RIGHT RADIAL; BG TOTAL HEMOGLOBIN 14.1 g/dL (12.0-18.0); BG VENT MODE VENT - AC
[2021-05-17] MEDS: INSULIN GLARGINE UD 100 UNITS/ML SYR SUBCUT SCH ×2 (10:57→21:16)
[2021-05-17] MEDS: GUAIFENESIN 200MG/10ML SUGAR FREE UDC PO PRN (11:30)
[2021-05-17 16:10] LABS: PROTHROMBIN TIME 10.6 sec (9.6-11.0)
[2021-05-18] VITALS (94 sets, daily range): BP systolic 128–167; BP diastolic 71–141
[2021-05-18] MEDS: IPRATROPIUM/ALBUTEROL 0.5-3(2.5)MG/3ML NEB HHN SCH ×3 (00:14→15:27)
[2021-05-18] MEDS: MEROPENEM 1,000 MG in SODIUM CHLORIDE 0.9% 100 ML IV SCH ×2 (03:30→16:42)
[2021-05-18] MEDS: BLOOD SUGAR DIAGNOSTIC STRIP TEST SCH ×4 (05:34→21:03)
[2021-05-18] MEDS: INSULIN LISPRO 100 UNITS/ML SUBCUT SCH ×4 (05:59→21:10)
[2021-05-18 06:09] LABS: PROTHROMBIN TIME 10.9 sec (9.6-11.0)
[2021-05-18 06:14] LABS: BASOPHILS % 0.3 % (0.0-2.0); EOSINOPHILS % 3.8 % (0.0-5.0); HEMATOCRIT. 39.7 % (42.0-52.0); HEMOGLOBIN. 13.3 g/dL (14.0-18.0); LYMPHOCYTES % 11.4 % (20.0-50.0); MEAN CORPUSCULAR HEMOGLOBIN 30.5 pg (28.0-32.0); MEAN CORPUSCULAR VOLUME 90.7 fL (80.0-94.0); MONOCYTES % 8.3 % (2.0-8.0); NEUTROPHILS % 76.2 % (40.0-76.0); PHOSPHORUS 3.5 mg/dL (2.5-4.9); RED BLOOD CELL COUNT 4.37 mill/uL (4.7-6.1); RED CELL DISTRIBUTION WIDTH 13.5 % (11.6-14.6)
[2021-05-18 08:47] LABS: PLATELET 333 x1000/uL (130-400)
[2021-05-18] MEDS: LEVETIRACETAM 500MG PREMIX 100 ML IV SCH ×2 (09:18→21:09)
[2021-05-18] MEDS: PANTOPRAZOLE SODIUM 40 MG/VIAL IV SCH (09:18)
[2021-05-18] MEDS: INSULIN GLARGINE UD 100 UNITS/ML SYR SUBCUT SCH ×2 (10:00→21:11)
[2021-05-18] MEDS: METOPROLOL TARTRATE 100MG TABLET PO SCH ×2 (10:18→21:10)
[2021-05-18] MEDS: MINOXIDIL 2.5MG TABLET PO SCH ×2 (10:18→21:09)
[2021-05-18] MEDS: AMLODIPINE 10MG TABLET PO SCH (10:27)
[2021-05-18] MEDS: LACTOBACILLUS GG CAPSULE PO SCH (11:00)
[2021-05-18] MEDS ORDERED: LIDOCAINE HCL/EPINEPHRINE 1%-EPI 1:100,000 20 ML VIAL ONE (13:03)
[2021-05-18] MEDS ORDERED: ROCURONIUM BROMIDE 10MG/ML VIAL 5ML IV ONE ×2 (13:18→13:43)
[2021-05-18] MEDS ORDERED: MIDAZOLAM HCL 5 MG/5 ML VIAL ONE (15:38)
[2021-05-18] MEDS ORDERED: FENTANYL CITRATE/PF 50MCG/ML 2ML VIAL ONE (15:39)
[2021-05-18] MEDS ORDERED: MIDAZOLAM HCL 5 MG/5 ML VIAL IV PRN (15:55)
[2021-05-18] MEDS: DEXTROSE 5% WATER 1,000 ML IV SCH (17:33)
[2021-05-18] MEDS ORDERED: LEVOFLOXACIN 500MG PREMIX 100 ML IV SCH (20:30)
[2021-05-18] MEDS: LEVOFLOXACIN 750MG PREMIX 150 ML IV SCH (22:07)
[2021-05-19] VITALS (62 sets, daily range): BP systolic 116–164; BP diastolic 69–110
[2021-05-19] MEDS: IPRATROPIUM/ALBUTEROL 0.5-3(2.5)MG/3ML NEB HHN SCH ×3 (00:28→17:33)
[2021-05-19 05:10] LABS: BASOPHILS % 0.7 % (0.0-2.0); EOSINOPHILS % 4.7 % (0.0-5.0); HEMATOCRIT. 38.8 % (42.0-52.0); HEMOGLOBIN. 13.5 g/dL (14.0-18.0); LYMPHOCYTES % 11.9 % (20.0-50.0); MEAN CORPUSCULAR HEMOGLOBIN 31.4 pg (28.0-32.0); MEAN CORPUSCULAR VOLUME 90.3 fL (80.0-94.0); MEAN PLATELET VOLUME 9.1 fl (7.4-10.4); MONOCYTES % 8.3 % (2.0-8.0); NEUTROPHILS % 74.4 % (40.0-76.0); PLATELET 350 x1000/uL (130-400); RED CELL DISTRIBUTION WIDTH 13.4 % (11.6-14.6)
[2021-05-19 05:45] LABS: PHOSPHORUS 3.4 mg/dL (2.5-4.9)
[2021-05-19] MEDS: BLOOD SUGAR DIAGNOSTIC STRIP TEST SCH ×4 (05:53→21:17)
[2021-05-19] MEDS: INSULIN LISPRO 100 UNITS/ML SUBCUT SCH ×4 (05:58→21:16)
[2021-05-19] MEDS: PANTOPRAZOLE SODIUM 40 MG/VIAL IV SCH (09:00)
[2021-05-19] MEDS: METOPROLOL TARTRATE 100MG TABLET PO SCH ×2 (09:00→21:13)
[2021-05-19] MEDS: LACTOBACILLUS GG CAPSULE PO SCH (09:01)
[2021-05-19] MEDS: AMLODIPINE 10MG TABLET PO SCH (09:01)
[2021-05-19] MEDS: MINOXIDIL 2.5MG TABLET PO SCH ×2 (09:01→21:14)
[2021-05-19] MEDS: LEVETIRACETAM 500MG PREMIX 100 ML IV SCH ×2 (09:02→21:14)
[2021-05-19] MEDS: INSULIN GLARGINE UD 100 UNITS/ML SYR SUBCUT SCH ×2 (09:14→21:17)
[2021-05-19] MEDS: DEXTROSE 5% WATER 1,000 ML IV SCH (12:56)
[2021-05-20] VITALS (12 sets, daily range): BP systolic 139–175; BP diastolic 75–98
[2021-05-20] MEDS: IPRATROPIUM/ALBUTEROL 0.5-3(2.5)MG/3ML NEB HHN SCH ×4 (00:57→21:07)
[2021-05-20 07:18] LABS: BASOPHILS % 0.4 % (0.0-2.0); EOSINOPHILS % 5.1 % (0.0-5.0); HEMATOCRIT. 39.3 % (42.0-52.0); HEMOGLOBIN. 13.2 g/dL (14.0-18.0); LYMPHOCYTES % 16.8 % (20.0-50.0); MEAN CORPUSCULAR HEMOGLOBIN 30.5 pg (28.0-32.0); MEAN CORPUSCULAR VOLUME 90.6 fL (80.0-94.0); MEAN PLATELET VOLUME 9.6 fl (7.4-10.4); MONOCYTES % 7.5 % (2.0-8.0); NEUTROPHILS % 70.2 % (40.0-76.0); PLATELET 389 x1000/uL (130-400); RED BLOOD CELL COUNT 4.34 mill/uL (4.7-6.1); RED CELL DISTRIBUTION WIDTH 13.2 % (11.6-14.6)
[2021-05-20 07:21] LABS: PHOSPHORUS 3.7 mg/dL (2.5-4.9)
[2021-05-20] MEDS: BLOOD SUGAR DIAGNOSTIC STRIP TEST SCH ×4 (07:46→21:00)
[2021-05-20] MEDS: LEVETIRACETAM 500MG PREMIX 100 ML IV SCH ×2 (08:25→21:32)
[2021-05-20] MEDS: LACTOBACILLUS GG CAPSULE PO SCH (08:25)
[2021-05-20] MEDS: PANTOPRAZOLE SODIUM 40 MG/VIAL IV SCH (08:25)
[2021-05-20] MEDS: AMLODIPINE 10MG TABLET PO SCH (08:26)
[2021-05-20] MEDS: MINOXIDIL 2.5MG TABLET PO SCH ×2 (08:26→21:31)
[2021-05-20] MEDS: METOPROLOL TARTRATE 100MG TABLET PO SCH (08:26)
[2021-05-20] MEDS: INSULIN LISPRO 100 UNITS/ML SUBCUT SCH ×4 (08:27→22:17)
[2021-05-20] MEDS: HYDRALAZINE 20MG/ML VIAL IV PRN ×2 (10:20→21:43)
[2021-05-20] MEDS: INSULIN GLARGINE UD 100 UNITS/ML SYR SUBCUT SCH ×2 (12:12→22:17)
[2021-05-20] MEDS ORDERED: MORPHINE SULFATE 2 MG/ML CPJ (NOT FOR IM USE) IV PRN (14:30)
[2021-05-20] MEDS: CARVEDILOL 12.5MG TABLET NG SCH (21:31)
[2021-05-20] MEDS: LEVOFLOXACIN 750MG PREMIX 150 ML IV SCH (21:32)
[2021-05-21] VITALS (10 sets, daily range): BP systolic 101–165; BP diastolic 64–97
[2021-05-21 07:13] LABS: HEMATOCRIT. 40.9 % (42.0-52.0); HEMOGLOBIN. 13.9 g/dL (14.0-18.0); MEAN CORPUSCULAR VOLUME 91.5 fL (80.0-94.0); PLATELET 411 x1000/uL (130-400); RED BLOOD CELL COUNT 4.47 mill/uL (4.7-6.1)
[2021-05-21] MEDS: BLOOD SUGAR DIAGNOSTIC STRIP TEST SCH ×2 (08:18→11:56)
[2021-05-21] MEDS: IPRATROPIUM/ALBUTEROL 0.5-3(2.5)MG/3ML NEB HHN SCH (08:23)
[2021-05-21 08:29] LABS: PHOSPHORUS 4.6 mg/dL (2.5-4.9)
[2021-05-21] MEDS: AMLODIPINE 10MG TABLET PO SCH (08:29)
[2021-05-21] MEDS: CARVEDILOL 12.5MG TABLET NG SCH (08:29)
[2021-05-21] MEDS: LACTOBACILLUS GG CAPSULE PO SCH (08:29)
[2021-05-21] MEDS: INSULIN LISPRO 100 UNITS/ML SUBCUT SCH ×2 (08:31→12:11)
[2021-05-21] MEDS: LEVETIRACETAM 500MG PREMIX 100 ML IV SCH (08:33)
[2021-05-21] MEDS: PANTOPRAZOLE SODIUM 40 MG/VIAL IV SCH (08:33)
[2021-05-21] MEDS: MINOXIDIL 2.5MG TABLET PO SCH (08:33)
[2021-05-21] MEDS: INSULIN GLARGINE UD 100 UNITS/ML SYR SUBCUT SCH (10:43)
[2021-05-21] MEDS ORDERED: COR12 GT (11:19)
[2021-05-21] MEDS ORDERED: KEPP500 GT (11:19)
[2021-05-21] MEDS ORDERED: METO5VIA3 IV (11:19)
[2021-05-21] MEDS ORDERED: MINO2.5T19 PO (11:19)
[2021-05-21] MEDS ORDERED: LEVO750T46 GT (11:19)
[2021-05-21] MEDS ORDERED: LACT1CAP77 PO (11:19)
[2021-05-21] MEDS ORDERED: PANT40VI IV (11:19)
[2021-05-21] MEDS ORDERED: LANTUSUD SUBCUT (11:19)
[2021-05-21] MEDS ORDERED: CLON1PAT11 TD (11:19)
[2021-05-21] MEDS ORDERED: AMLO10TA80 GT (11:19)
[2021-05-21] MEDS ORDERED: METOCLOPRAMIDE HCL 10MG/2ML VIAL IV SCH (12:00)
[2021-05-21] MEDS: ACETAMINOPHEN 650MG/20.3ML UDC PO PRN (12:31)
[2021-05-21 17:03] LABS: PLATELET ESTIMATE INCREASED
[2021-05-21] MEDS ORDERED: LEVETIRACETAM 500MG/5ML CUP PO SCH (21:00)
== END 2021-05-21 18:46 | DRG 5 ==
LOC: ER 18:23 → MICUSO 20:45 → EDBEDREQTM 21:13 → EDBEDREQ 21:13 → ENRESERV 21:17 → 5EST 05-19 16:21
PROVIDERS: ADMIT Internal Medicine; ATTEND Family Medicine Adult Medicine
PROC: 5A1955Z Respiratory Ventilation, Greater than 96 Consecutive Hours (ICD-10-PCS; 2021-05-10)
PROC: 0BH17EZ Insertion of Endotracheal Airway into Trachea, Via Natural or Artificial Opening (ICD-10-PCS; 2021-05-10)
PROC: 0B110F4 Bypass Trachea to Cutaneous with Tracheostomy Device, Open Approach (ICD-10-PCS; principal; 2021-05-18)
PROC: 0DH63UZ Insertion of Feeding Device into Stomach, Percutaneous Approach (ICD-10-PCS; 2021-05-18)
DX: A41.3 Sepsis due to Hemophilus influenzae (principal); I61.3 Nontraumatic intracerebral hemorrhage in brain stem; N17.0 Acute kidney failure with tubular necrosis; G93.40 Encephalopathy, unspecified; J15.6 Pneumonia due to other Gram-negative bacteria; E44.0 Moderate protein-calorie malnutrition; A04.72 Enterocolitis due to Clostridium difficile, not specified as recurrent; E87.0 Hyperosmolality and hypernatremia; I21.A1 Myocardial infarction type 2; J96.01 Acute respiratory failure with hypoxia; Z66 Do not resuscitate; E11.22 Type 2 diabetes mellitus with diabetic chronic kidney disease; E78.5 Hyperlipidemia, unspecified; E87.6 Hypokalemia; G40.909 Epilepsy, unspecified, not intractable, without status epilepticus; I16.1 Hypertensive emergency; N18.2 Chronic kidney disease, stage 2 (mild); A41.50 Gram-negative sepsis, unspecified; M48.02 Spinal stenosis, cervical region; Z20.822 Contact with and (suspected) exposure to COVID-19; E11.65 Type 2 diabetes mellitus with hyperglycemia; I12.9 Hypertensive chronic kidney disease with stage 1 through stage 4 chronic kidney disease, or unspecified chronic kidney disease; I25.10 Atherosclerotic heart disease of native coronary artery without angina pectoris; K29.70 Gastritis, unspecified, without bleeding; K44.9 Diaphragmatic hernia without obstruction or gangrene; E87.4 Mixed disorder of acid-base balance; N20.0 Calculus of kidney; R13.12 Dysphagia, oropharyngeal phase; Z79.84 Long term (current) use of oral hypoglycemic drugs; Z79.899 Other long term (current) drug therapy; Z82.49 Family history of ischemic heart disease and other diseases of the circulatory system; Z83.3 Family history of diabetes mellitus; Z99.11 Dependence on respirator [ventilator] status; Z68.30 Body mass index [BMI] 30.0-30.9, adult
CPT/HCPCS: 36415; 36600; 70496; 70498; 71045; 76770; 80048; 80053; 80305; 80307; 80320; 80329; 81003; 82010; 82140; 82375; 82550; 82805; 82962; 83036; 83605; 83735; 83880; 84100; 84145; 84443; 84478; 84484; 85025; 86850; 86900; 87070; 87077; 87186; 87426; 93005; 94002; 94003; 94640; 99285; C9113; J0360; J1200; J1815; J1953; J1956; J2060; J2150; J2185; J2250; J2270; J2310; J2543; J2704; J2765; J3010; J3480; J3490; J7030; J7050; J7060; J7070; Q9967; A4315; G0480

== ENCOUNTER 2021-06-03 08:10 | Inpatient (IN) | payer MEDICAID ==
[~2021-06-03] VITALS: Ht 167.6 cm; Wt 74.8 kg
[~2021-06-03 08:10] MED LIST: AMLO10TA80 GT; CLON1PAT11 TD; COR12 GT; KEPP500 GT; LACT1CAP77 PO; LANTUSUD SUBCUT; LEVO750T46 GT; METO5VIA3 IV; MINO2.5T19 PO; PANT40VI IV
[2021-06-03] MEDS ORDERED: SODIUM CHLORIDE 0.9% 1000ML BAG (SEPSIS BOLUS) IV ONE ×2 (08:45→09:45)
[2021-06-03] MEDS ORDERED: SODIUM CHLORIDE 0.9% 1,000 ML IV ONE ×2 (08:45→09:30)
[2021-06-03 09:07] LABS: BASOPHILS % 0.5 % (0.0-2.0); EOSINOPHILS % 3.6 % (0.0-5.0); HEMATOCRIT. 43.7 % (42.0-52.0); HEMOGLOBIN. 14.4 g/dL (14.0-18.0); LYMPHOCYTES % 16.6 % (20.0-50.0); MEAN CORPUSCULAR HEMOGLOBIN 30.5 pg (28.0-32.0); MEAN CORPUSCULAR VOLUME 92.4 fL (80.0-94.0); MEAN PLATELET VOLUME 9.7 fl (7.4-10.4); MONOCYTES % 5.8 % (2.0-8.0); NEUTROPHILS % 73.5 % (40.0-76.0); PLATELET 496 x1000/uL (130-400); RED BLOOD CELL COUNT 4.73 mill/uL (4.7-6.1); RED CELL DISTRIBUTION WIDTH 13.2 % (11.6-14.6)
[2021-06-03 09:18] LABS: CHLORIDE 129 mEq/L (98-107)
[2021-06-03] MEDS ORDERED: VANCOMYCIN 1 G PREMIX 200 ML IV ONE (09:45)
[2021-06-03] MEDS ORDERED: PIPERACILLIN/TAZ 3.375G PREMIX 50 ML IV ONE (09:45)
[2021-06-03] MEDS ORDERED: DEXTROSE 5% WATER 1,000 ML IV SCH (11:00)
[2021-06-03] MEDS ORDERED: PIPERACILLIN/TAZOBACTAM 3.375 G in DEXTROSE 5% WATER 50 ML IV SCH (13:30)
[2021-06-03] MEDS ORDERED: ONDANSETRON HCL 4MG/2ML INJ IV PRN (13:30)
[2021-06-03] MEDS: DEXTROSE 5% WATER 1,000 ML IV SCH (13:30)
[2021-06-03] MEDS ORDERED: AMLODIPINE 10MG TABLET PO SCH (13:45)
[2021-06-03] MEDS ORDERED: AMLODIPINE 10MG TABLET GT SCH (13:45)
[2021-06-03] MEDS: LEVETIRACETAM 500MG/5ML CUP GT SCH ×2 (14:08→17:00)
[2021-06-03] MEDS: PANTOPRAZOLE SODIUM 40 MG/VIAL IV SCH (14:08)
[2021-06-03 15:25] LABS: CLARITY URINE TURBID (CLEAR); COLOR URINE YELLOW (YELLOW); KETONES URINE NEGATIVE (NEGATIVE); LEUKOCYTE ESTERASE URINE 3+ (NEGATIVE); NITRITE URINE NEGATIVE (NEGATIVE); OCCULT BLOOD URINE 3+ (NEGATIVE); PROTEIN URINE 3+ (NEGATIVE); SPECIFIC GRAVITY URINE 1.017 (1.005-1.030); UROBILINOGEN URINE 0.2 E.U./dL (0.2-1.0)
[2021-06-03 16:13] LABS: BG BASE EXCESS -6.9 mmol/L (-2.0-2.0); BG CARBOXYHEMOGLOBIN 0.3 % (0.5-1.5); BG DEOXYHEMOGLOBIN 1.8 % (0.0-5.0); BG FRACTION INSPIRED OXYGEN 40; BG HCO3 ACT 16.8 mmol/L (22.0-26.0); BG METHEMOGLOBIN 0.2 % (0.0-1.5); BG OXYGEN SATURATION 98.2 % (92.0-98.5); BG OXYHEMOGLOBIN 97.7 % (94.0-97.0); BG PCO2 28.5 mmHg (35.0-45.0); BG PH 7.388 (7.350-7.450); BG PO2 129.3 mmHg (75.0-100.0); BG SAMPLE SITE RIGHT RADIAL; BG TOTAL HEMOGLOBIN 12.2 g/dL (12.0-18.0); BG VENT MODE VENT - AC
[2021-06-03] MEDS: METOCLOPRAMIDE HCL 10MG/2ML VIAL IV SCH (17:55)
[2021-06-03] MEDS ORDERED: DEXTROSE 50% WATER 50ML SYRINGE IV PRN (19:45)
[2021-06-03] MEDS: BLOOD SUGAR DIAGNOSTIC STRIP TEST SCH (21:09)
[2021-06-03] MEDS: INSULIN LISPRO 100 UNITS/ML SUBCUT SCH (21:17)
[2021-06-03] MEDS: CARVEDILOL 6.25 MG TABLET GT SCH (21:55)
[2021-06-03] MEDS: ENOXAPARIN 30MG/0.3ML SYR SUBCUT SCH (21:55)
[2021-06-03] MEDS: PIPERACILLIN/TAZOBACTAM 3.375G in DEXT 5% WATER 50ML IV SCH (22:00)
[2021-06-03] MEDS ORDERED: INSULIN GLARGINE UD 100 UNITS/ML SYR SUBCUT SCH (22:00)
[2021-06-03 23:44] VITALS: BP 120/78
[2021-06-03 23:45] VITALS: BP 149/88
[2021-06-04] VITALS (11 sets, daily range): BP systolic 105–152; BP diastolic 66–96
[2021-06-04] MEDS: METOCLOPRAMIDE HCL 10MG/2ML VIAL IV SCH ×5 (00:21→23:59)
[2021-06-04] MEDS: DEXTROSE 5% WATER 1,000 ML IV SCH ×2 (01:53→18:17)
[2021-06-04] MEDS: ACETAMINOPHEN 650MG/20.3ML UDC GT PRN (03:51)
[2021-06-04] MEDS: PIPERACILLIN/TAZOBACTAM 3.375G in DEXT 5% WATER 50ML IV SCH ×3 (06:14→21:24)
[2021-06-04 06:28] LABS: BASOPHILS % 0.4 % (0.0-2.0); EOSINOPHILS % 1.5 % (0.0-5.0); HEMATOCRIT. 36.9 % (42.0-52.0); HEMOGLOBIN. 11.6 g/dL (14.0-18.0); LYMPHOCYTES % 9.9 % (20.0-50.0); MEAN CORPUSCULAR HEMOGLOBIN 29.4 pg (28.0-32.0); MEAN CORPUSCULAR VOLUME 93.5 fL (80.0-94.0); MEAN PLATELET VOLUME 9.8 fl (7.4-10.4); NEUTROPHILS % 84.2 % (40.0-76.0); PLATELET 338 x1000/uL (130-400); RED BLOOD CELL COUNT 3.94 mill/uL (4.7-6.1)
[2021-06-04] MEDS: BLOOD SUGAR DIAGNOSTIC STRIP TEST SCH ×4 (07:30→21:13)
[2021-06-04 08:40] LABS: CHLORIDE 133 mEq/L (98-107)
[2021-06-04] MEDS: LEVETIRACETAM 500MG/5ML CUP GT SCH ×2 (09:57→18:02)
[2021-06-04] MEDS: CARVEDILOL 6.25 MG TABLET GT SCH ×2 (09:58→21:54)
[2021-06-04] MEDS: INSULIN LISPRO 100 UNITS/ML SUBCUT SCH ×4 (10:00→21:32)
[2021-06-04] MEDS: PANTOPRAZOLE SODIUM 40 MG/VIAL IV SCH (10:00)
[2021-06-04] MEDS ORDERED: FLUCONAZOLE 100MG TABLET PO NR (12:15)
[2021-06-04 13:17] LABS: CREATINE KINASE 652 IU/L (39-308)
[2021-06-04] MEDS: CITRIC ACID/SODIUM CITRATE SOLN 30ML UDC PO SCH ×2 (13:35→18:02)
[2021-06-04] MEDS: INSULIN GLARGINE UD 100 UNITS/ML SYR SUBCUT SCH ×2 (14:08→21:32)
[2021-06-04] MEDS: ENOXAPARIN 30MG/0.3ML SYR SUBCUT SCH (21:23)
[2021-06-04] MEDS: GUAIFENESIN 200MG/10ML SUGAR FREE UDC PO SCH (23:59)
[2021-06-05] VITALS (12 sets, daily range): BP systolic 118–149; BP diastolic 62–88
[2021-06-05] MEDS: PIPERACILLIN/TAZOBACTAM 3.375G in DEXT 5% WATER 50ML IV SCH ×3 (05:30→21:36)
[2021-06-05] MEDS: METOCLOPRAMIDE HCL 10MG/2ML VIAL IV SCH ×3 (05:30→18:33)
[2021-06-05] MEDS: DEXTROSE 5% WATER 1,000 ML IV SCH ×2 (05:31→16:56)
[2021-06-05] MEDS: GUAIFENESIN 200MG/10ML SUGAR FREE UDC PO SCH ×3 (05:31→18:34)
[2021-06-05] MEDS: ACETAMINOPHEN 650MG/20.3ML UDC GT PRN (05:52)
[2021-06-05] MEDS: BLOOD SUGAR DIAGNOSTIC STRIP TEST SCH ×4 (07:30→21:36)
[2021-06-05] MEDS: INSULIN LISPRO 100 UNITS/ML SUBCUT SCH ×4 (08:00→21:58)
[2021-06-05 09:07] LABS: BG BASE EXCESS -3.1 mmol/L (-2.0-2.0); BG CARBOXYHEMOGLOBIN 0.1 % (0.5-1.5); BG DEOXYHEMOGLOBIN 2.1 % (0.0-5.0); BG FRACTION INSPIRED OXYGEN 40; BG HCO3 ACT 20.2 mmol/L (22.0-26.0); BG METHEMOGLOBIN 0.5 % (0.0-1.5); BG OXYGEN SATURATION 97.9 % (92.0-98.5); BG OXYHEMOGLOBIN 97.3 % (94.0-97.0); BG PCO2 31.2 mmHg (35.0-45.0); BG PO2 105.6 mmHg (75.0-100.0); BG SAMPLE SITE RIGHT RADIAL; BG TOTAL HEMOGLOBIN 12.7 g/dL (12.0-18.0); BG VENT MODE VENT - AC
[2021-06-05] MEDS: LEVETIRACETAM 500MG/5ML CUP GT SCH ×2 (09:56→17:00)
[2021-06-05] MEDS: CITRIC ACID/SODIUM CITRATE SOLN 30ML UDC PO SCH ×3 (09:56→18:33)
[2021-06-05] MEDS: FAMOTIDINE 20MG/2ML VIAL IV SCH (09:56)
[2021-06-05] MEDS: CARVEDILOL 6.25 MG TABLET GT SCH ×2 (09:57→21:36)
[2021-06-05] MEDS: INSULIN GLARGINE UD 100 UNITS/ML SYR SUBCUT SCH ×2 (10:59→22:00)
[2021-06-05 15:37] LABS: BASOPHILS % 0.2 % (0.0-2.0); EOSINOPHILS % 3.9 % (0.0-5.0); HEMATOCRIT. 38.8 % (42.0-52.0); HEMOGLOBIN. 12.6 g/dL (14.0-18.0); LYMPHOCYTES % 13.3 % (20.0-50.0); MEAN CORPUSCULAR HEMOGLOBIN 29.4 pg (28.0-32.0); MEAN CORPUSCULAR VOLUME 90.7 fL (80.0-94.0); MEAN PLATELET VOLUME 9.6 fl (7.4-10.4); MONOCYTES % 4.2 % (2.0-8.0); NEUTROPHILS % 78.4 % (40.0-76.0); PLATELET 292 x1000/uL (130-400); RED BLOOD CELL COUNT 4.28 mill/uL (4.7-6.1)
[2021-06-05 15:43] LABS: CHLORIDE 129 mEq/L (98-107)
[2021-06-05] MEDS: ENOXAPARIN 30MG/0.3ML SYR SUBCUT SCH (21:36)
[2021-06-06] VITALS (12 sets, daily range): BP systolic 134–165; BP diastolic 68–95
[2021-06-06] MEDS: METOCLOPRAMIDE HCL 10MG/2ML VIAL IV SCH ×5 (00:31→23:33)
[2021-06-06] MEDS: GUAIFENESIN 200MG/10ML SUGAR FREE UDC PO SCH ×5 (00:31→23:33)
[2021-06-06] MEDS: PIPERACILLIN/TAZOBACTAM 3.375G in DEXT 5% WATER 50ML IV SCH ×3 (05:55→21:21)
[2021-06-06] MEDS: BLOOD SUGAR DIAGNOSTIC STRIP TEST SCH ×4 (07:53→21:21)
[2021-06-06] MEDS: CITRIC ACID/SODIUM CITRATE SOLN 30ML UDC PO SCH ×3 (08:34→17:45)
[2021-06-06] MEDS: FAMOTIDINE 20MG/2ML VIAL IV SCH (08:35)
[2021-06-06] MEDS: LEVETIRACETAM 500MG/5ML CUP GT SCH ×2 (08:35→17:45)
[2021-06-06] MEDS: ACETAMINOPHEN 650MG/20.3ML UDC GT PRN (08:35)
[2021-06-06] MEDS: CARVEDILOL 6.25 MG TABLET GT SCH ×2 (08:35→21:19)
[2021-06-06] MEDS: INSULIN LISPRO 100 UNITS/ML SUBCUT SCH ×4 (08:38→21:28)
[2021-06-06] MEDS: INSULIN GLARGINE UD 100 UNITS/ML SYR SUBCUT SCH ×2 (10:59→21:28)
[2021-06-06] MEDS: FLUCONAZOLE 100MG TABLET PO SCH (11:22)
[2021-06-06] MEDS: ENOXAPARIN 40MG/0.4ML SYR SUBCUT SCH (21:19)
[2021-06-06] MEDS: DEXTROSE 5% WATER 1,000 ML IV SCH ×2 (21:21→21:30)
[2021-06-07] VITALS (12 sets, daily range): BP systolic 142–185; BP diastolic 56–108
[2021-06-07] MEDS: GUAIFENESIN 200MG/10ML SUGAR FREE UDC PO SCH ×4 (06:16→23:05)
[2021-06-07] MEDS: METOCLOPRAMIDE HCL 10MG/2ML VIAL IV SCH ×4 (06:16→23:05)
[2021-06-07] MEDS: PIPERACILLIN/TAZOBACTAM 3.375G in DEXT 5% WATER 50ML IV SCH ×3 (06:16→21:59)
[2021-06-07] MEDS: BLOOD SUGAR DIAGNOSTIC STRIP TEST SCH ×4 (07:30→20:24)
[2021-06-07] MEDS: CITRIC ACID/SODIUM CITRATE SOLN 30ML UDC PO SCH ×3 (09:05→17:09)
[2021-06-07] MEDS: FLUCONAZOLE 100MG TABLET PO SCH (09:05)
[2021-06-07] MEDS: FAMOTIDINE 20MG/2ML VIAL IV SCH (09:05)
[2021-06-07] MEDS: CARVEDILOL 6.25 MG TABLET GT SCH ×2 (09:06→20:23)
[2021-06-07] MEDS: DEXTROSE 5% WATER 1,000 ML IV SCH (09:06)
[2021-06-07] MEDS: LEVETIRACETAM 500MG/5ML CUP GT SCH ×2 (09:06→17:09)
[2021-06-07] MEDS: INSULIN LISPRO 100 UNITS/ML SUBCUT SCH ×4 (09:07→20:37)
[2021-06-07 11:13] LABS: BASOPHILS % 0.6 % (0.0-2.0); EOSINOPHILS % 3.2 % (0.0-5.0); HEMATOCRIT. 37.3 % (42.0-52.0); HEMOGLOBIN. 12.3 g/dL (14.0-18.0); LYMPHOCYTES % 19.1 % (20.0-50.0); MEAN CORPUSCULAR HEMOGLOBIN 29.4 pg (28.0-32.0); MEAN CORPUSCULAR VOLUME 89.1 fL (80.0-94.0); MEAN PLATELET VOLUME 9.6 fl (7.4-10.4); MONOCYTES % 4.6 % (2.0-8.0); NEUTROPHILS % 72.5 % (40.0-76.0); PLATELET 271 x1000/uL (130-400); RED BLOOD CELL COUNT 4.18 mill/uL (4.7-6.1); RED CELL DISTRIBUTION WIDTH 13.1 % (11.6-14.6)
[2021-06-07] MEDS: INSULIN GLARGINE UD 100 UNITS/ML SYR SUBCUT SCH ×2 (12:46→22:00)
[2021-06-07 14:12] LABS: ANTI-NUCLEAR ANTIBODIES DIRECT Negative (Negative)
[2021-06-07] MEDS: ENOXAPARIN 40MG/0.4ML SYR SUBCUT SCH (20:24)
[2021-06-08] VITALS (13 sets, daily range): BP systolic 132–172; BP diastolic 85–102
[2021-06-08] MEDS: DEXTROSE 5% WATER 1,000 ML IV SCH ×2 (00:19→13:29)
[2021-06-08] MEDS: GUAIFENESIN 200MG/10ML SUGAR FREE UDC PO SCH ×3 (05:35→18:06)
[2021-06-08] MEDS: METOCLOPRAMIDE HCL 10MG/2ML VIAL IV SCH ×3 (05:36→18:06)
[2021-06-08] MEDS: PIPERACILLIN/TAZOBACTAM 3.375G in DEXT 5% WATER 50ML IV SCH ×3 (05:36→21:13)
[2021-06-08] MEDS: BLOOD SUGAR DIAGNOSTIC STRIP TEST SCH ×4 (07:30→21:13)
[2021-06-08] MEDS: CITRIC ACID/SODIUM CITRATE SOLN 30ML UDC PO SCH ×3 (08:56→18:06)
[2021-06-08] MEDS: FLUCONAZOLE 100MG TABLET PO SCH (08:56)
[2021-06-08] MEDS: FAMOTIDINE 20MG/2ML VIAL IV SCH (08:56)
[2021-06-08] MEDS: LEVETIRACETAM 500MG/5ML CUP GT SCH ×2 (08:56→18:06)
[2021-06-08] MEDS: CARVEDILOL 6.25 MG TABLET GT SCH ×2 (08:56→21:13)
[2021-06-08] MEDS: INSULIN LISPRO 100 UNITS/ML SUBCUT SCH ×4 (09:01→21:16)
[2021-06-08 09:05] LABS: BG BASE EXCESS -3.7 mmol/L (-2.0-2.0); BG CARBOXYHEMOGLOBIN 0.3 % (0.5-1.5); BG DEOXYHEMOGLOBIN 1.6 % (0.0-5.0); BG FRACTION INSPIRED OXYGEN 40; BG METHEMOGLOBIN 0.2 % (0.0-1.5); BG OXYGEN SATURATION 98.4 % (92.0-98.5); BG OXYHEMOGLOBIN 97.9 % (94.0-97.0); BG PH 7.449 (7.350-7.450); BG PO2 127.5 mmHg (75.0-100.0); BG SAMPLE SITE RIGHT RADIAL; BG TOTAL HEMOGLOBIN 12.7 g/dL (12.0-18.0); BG TOTAL RESPIRATORY RATE 19 b/min; BG VENT MODE VENT - AC
[2021-06-08] MEDS: INSULIN GLARGINE UD 100 UNITS/ML SYR SUBCUT SCH ×2 (10:57→22:53)
[2021-06-08] MEDS ORDERED: IPRATROPIUM/ALBUTEROL 0.5-3(2.5)MG/3ML NEB HHN PRN (16:45)
[2021-06-08] MEDS: IPRATROPIUM/ALBUTEROL 0.5-3(2.5)MG/3ML NEB HHN SCH (20:29)
[2021-06-08] MEDS: ACETYLCYSTEINE 100MG/ML 10% VIAL 4ML INH SCH (20:29)
[2021-06-08] MEDS: ENOXAPARIN 40MG/0.4ML SYR SUBCUT SCH (21:13)
[2021-06-09] VITALS (12 sets, daily range): BP systolic 118–162; BP diastolic 78–98
[2021-06-09] MEDS: METOCLOPRAMIDE HCL 10MG/2ML VIAL IV SCH ×4 (00:44→18:32)
[2021-06-09] MEDS: GUAIFENESIN 200MG/10ML SUGAR FREE UDC PO SCH ×4 (00:45→18:32)
[2021-06-09] MEDS: IPRATROPIUM/ALBUTEROL 0.5-3(2.5)MG/3ML NEB HHN SCH ×4 (01:20→18:00)
[2021-06-09] MEDS: DEXTROSE 5% WATER 1,000 ML IV SCH ×3 (02:32→21:00)
[2021-06-09] MEDS: ACETYLCYSTEINE 100MG/ML 10% VIAL 4ML INH SCH ×2 (07:53→21:38)
[2021-06-09] MEDS: BLOOD SUGAR DIAGNOSTIC STRIP TEST SCH ×4 (08:15→20:22)
[2021-06-09] MEDS: CITRIC ACID/SODIUM CITRATE SOLN 30ML UDC PO SCH ×3 (09:18→18:32)
[2021-06-09] MEDS: FAMOTIDINE 20MG/2ML VIAL IV SCH (09:18)
[2021-06-09] MEDS: LEVETIRACETAM 500MG/5ML CUP GT SCH ×2 (09:18→18:32)
[2021-06-09] MEDS: FLUCONAZOLE 100MG TABLET PO SCH (09:19)
[2021-06-09] MEDS: CARVEDILOL 6.25 MG TABLET GT SCH ×2 (09:19→20:53)
[2021-06-09] MEDS: INSULIN LISPRO 100 UNITS/ML SUBCUT SCH ×4 (09:20→20:54)
[2021-06-09] MEDS: INSULIN GLARGINE UD 100 UNITS/ML SYR SUBCUT SCH ×2 (10:45→21:08)
[2021-06-09] MEDS: SULFAMETHOXAZOLE/TRIMETHOPRIM 800/160MG TABLET PO SCH ×2 (13:07→20:53)
[2021-06-09] MEDS: ACETAMINOPHEN 650MG/20.3ML UDC GT PRN (17:56)
[2021-06-10] VITALS (13 sets, daily range): BP systolic 123–164; BP diastolic 76–96
[2021-06-10] MEDS: METOCLOPRAMIDE HCL 10MG/2ML VIAL IV SCH ×5 (00:22→23:39)
[2021-06-10] MEDS: GUAIFENESIN 200MG/10ML SUGAR FREE UDC PO SCH ×5 (00:22→23:40)
[2021-06-10] MEDS: IPRATROPIUM/ALBUTEROL 0.5-3(2.5)MG/3ML NEB HHN SCH ×4 (01:30→21:15)
[2021-06-10 06:26] LABS: BASOPHILS % 0.5 % (0.0-2.0); EOSINOPHILS % 2.4 % (0.0-5.0); HEMATOCRIT. 32.3 % (42.0-52.0); LYMPHOCYTES % 17.1 % (20.0-50.0); MEAN CORPUSCULAR VOLUME 87.9 fL (80.0-94.0); MEAN PLATELET VOLUME 9.4 fl (7.4-10.4); MONOCYTES % 6.2 % (2.0-8.0); NEUTROPHILS % 73.8 % (40.0-76.0); PLATELET 222 x1000/uL (130-400); RED BLOOD CELL COUNT 3.67 mill/uL (4.7-6.1)
[2021-06-10] MEDS: BLOOD SUGAR DIAGNOSTIC STRIP TEST SCH ×4 (07:30→20:14)
[2021-06-10] MEDS: ACETYLCYSTEINE 100MG/ML 10% VIAL 4ML INH SCH ×2 (08:14→21:15)
[2021-06-10] MEDS: CARVEDILOL 6.25 MG TABLET GT SCH ×2 (11:17→20:16)
[2021-06-10] MEDS: LEVETIRACETAM 500MG/5ML CUP GT SCH ×2 (11:17→18:06)
[2021-06-10] MEDS: FLUCONAZOLE 100MG TABLET PO SCH (11:18)
[2021-06-10] MEDS: FAMOTIDINE 20MG/2ML VIAL IV SCH (11:18)
[2021-06-10] MEDS: SULFAMETHOXAZOLE/TRIMETHOPRIM 800/160MG TABLET PO SCH ×2 (11:18→20:15)
[2021-06-10] MEDS: INSULIN GLARGINE UD 100 UNITS/ML SYR SUBCUT SCH ×2 (11:19→22:34)
[2021-06-10] MEDS: INSULIN LISPRO 100 UNITS/ML SUBCUT SCH ×4 (11:19→20:21)
[2021-06-11] VITALS (12 sets, daily range): BP systolic 128–176; BP diastolic 80–100
[2021-06-11] MEDS: IPRATROPIUM/ALBUTEROL 0.5-3(2.5)MG/3ML NEB HHN SCH ×4 (01:09→20:39)
[2021-06-11] MEDS: METOCLOPRAMIDE HCL 10MG/2ML VIAL IV SCH ×4 (05:01→23:57)
[2021-06-11] MEDS: GUAIFENESIN 200MG/10ML SUGAR FREE UDC PO SCH ×4 (05:01→23:57)
[2021-06-11 06:44] LABS: BASOPHILS % 0.3 % (0.0-2.0); HEMATOCRIT. 34.7 % (42.0-52.0); HEMOGLOBIN. 11.8 g/dL (14.0-18.0); MEAN CORPUSCULAR VOLUME 87.8 fL (80.0-94.0); MEAN PLATELET VOLUME 9.2 fl (7.4-10.4); NEUTROPHILS % 76.7 % (40.0-76.0); PLATELET 244 x1000/uL (130-400); RED BLOOD CELL COUNT 3.95 mill/uL (4.7-6.1); RED CELL DISTRIBUTION WIDTH 13.1 % (11.6-14.6)
[2021-06-11] MEDS: BLOOD SUGAR DIAGNOSTIC STRIP TEST SCH ×4 (08:02→21:24)
[2021-06-11] MEDS: LEVETIRACETAM 500MG/5ML CUP GT SCH ×2 (08:09→16:27)
[2021-06-11] MEDS: CARVEDILOL 6.25 MG TABLET GT SCH ×2 (08:10→21:24)
[2021-06-11] MEDS: ZINC SULFATE 220 MG ( 50 ) CAPSULE PO SCH (08:10)
[2021-06-11] MEDS: FAMOTIDINE 20MG TABLET GT SCH (08:10)
[2021-06-11] MEDS: FLUCONAZOLE 100MG TABLET PO SCH (08:10)
[2021-06-11] MEDS: SULFAMETHOXAZOLE/TRIMETHOPRIM 800/160MG TABLET PO SCH ×2 (08:11→21:24)
[2021-06-11] MEDS: ASCORBIC ACID 500 MG TABLET PO SCH (08:12)
[2021-06-11] MEDS: INSULIN LISPRO 100 UNITS/ML SUBCUT SCH ×4 (08:12→21:30)
[2021-06-11] MEDS: ACETYLCYSTEINE 100MG/ML 10% VIAL 4ML INH SCH (08:37)
[2021-06-11] MEDS: INSULIN GLARGINE UD 100 UNITS/ML SYR SUBCUT SCH ×2 (10:34→21:30)
[2021-06-11] MEDS: HYDRALAZINE 20MG/ML VIAL IV PRN (12:41)
[2021-06-11] MEDS: ACETAMINOPHEN 650MG/20.3ML UDC GT PRN (16:28)
[2021-06-12] VITALS (12 sets, daily range): BP systolic 127–149; BP diastolic 78–97
[2021-06-12] MEDS: IPRATROPIUM/ALBUTEROL 0.5-3(2.5)MG/3ML NEB HHN SCH ×4 (00:49→20:44)
[2021-06-12] MEDS: METOCLOPRAMIDE HCL 10MG/2ML VIAL IV SCH ×3 (06:14→17:41)
[2021-06-12] MEDS: GUAIFENESIN 200MG/10ML SUGAR FREE UDC PO SCH ×3 (06:14→17:40)
[2021-06-12 06:15] LABS: BASOPHILS % 0.4 % (0.0-2.0); EOSINOPHILS % 0.9 % (0.0-5.0); HEMATOCRIT. 36.5 % (42.0-52.0); HEMOGLOBIN. 12.3 g/dL (14.0-18.0); LYMPHOCYTES % 10.9 % (20.0-50.0); MEAN CORPUSCULAR HEMOGLOBIN 29.6 pg (28.0-32.0); MEAN CORPUSCULAR VOLUME 87.7 fL (80.0-94.0); MEAN PLATELET VOLUME 9.4 fl (7.4-10.4); MONOCYTES % 6.7 % (2.0-8.0); NEUTROPHILS % 81.1 % (40.0-76.0); PLATELET 295 x1000/uL (130-400); RED BLOOD CELL COUNT 4.16 mill/uL (4.7-6.1); RED CELL DISTRIBUTION WIDTH 13.3 % (11.6-14.6)
[2021-06-12] MEDS: BLOOD SUGAR DIAGNOSTIC STRIP TEST SCH ×4 (07:30→20:17)
[2021-06-12] MEDS: ACETYLCYSTEINE 100MG/ML 10% VIAL 4ML INH SCH ×2 (08:19→20:44)
[2021-06-12] MEDS: ASCORBIC ACID 500 MG TABLET PO SCH (09:01)
[2021-06-12] MEDS: FAMOTIDINE 20MG TABLET GT SCH (09:01)
[2021-06-12] MEDS: CARVEDILOL 6.25 MG TABLET GT SCH ×2 (09:01→20:30)
[2021-06-12] MEDS: ZINC SULFATE 220 MG ( 50 ) CAPSULE PO SCH (09:01)
[2021-06-12] MEDS: LEVETIRACETAM 500MG/5ML CUP GT SCH ×2 (09:01→17:40)
[2021-06-12] MEDS: SULFAMETHOXAZOLE/TRIMETHOPRIM 800/160MG TABLET PO SCH ×2 (09:01→20:30)
[2021-06-12] MEDS: INSULIN LISPRO 100 UNITS/ML SUBCUT SCH ×4 (09:05→20:32)
[2021-06-12] MEDS: INSULIN GLARGINE UD 100 UNITS/ML SYR SUBCUT SCH ×2 (09:07→21:09)
[2021-06-12] MEDS: ACETAMINOPHEN 650MG/20.3ML UDC GT PRN ×2 (12:36→20:30)
[2021-06-13] VITALS (12 sets, daily range): BP systolic 106–141; BP diastolic 69–81
[2021-06-13] MEDS: GUAIFENESIN 200MG/10ML SUGAR FREE UDC PO SCH ×5 (00:15→23:37)
[2021-06-13] MEDS: METOCLOPRAMIDE HCL 10MG/2ML VIAL IV SCH ×5 (00:15→23:37)
[2021-06-13] MEDS: IPRATROPIUM/ALBUTEROL 0.5-3(2.5)MG/3ML NEB HHN SCH ×4 (02:17→21:09)
[2021-06-13] MEDS: ACETAMINOPHEN 650MG/20.3ML UDC GT PRN (04:47)
[2021-06-13] MEDS: ACETYLCYSTEINE 100MG/ML 10% VIAL 4ML INH SCH ×2 (07:53→21:14)
[2021-06-13] MEDS: BLOOD SUGAR DIAGNOSTIC STRIP TEST SCH ×3 (08:05→21:00)
[2021-06-13] MEDS: INSULIN LISPRO 100 UNITS/ML SUBCUT SCH ×3 (09:52→23:36)
[2021-06-13] MEDS: INSULIN GLARGINE UD 100 UNITS/ML SYR SUBCUT SCH ×2 (09:53→22:12)
[2021-06-13] MEDS: ZINC SULFATE 220 MG ( 50 ) CAPSULE PO SCH (09:54)
[2021-06-13] MEDS: CARVEDILOL 6.25 MG TABLET GT SCH ×2 (09:54→22:03)
[2021-06-13] MEDS: ASCORBIC ACID 500 MG TABLET PO SCH (09:54)
[2021-06-13] MEDS: FAMOTIDINE 20MG TABLET GT SCH (09:54)
[2021-06-13] MEDS: SULFAMETHOXAZOLE/TRIMETHOPRIM 800/160MG TABLET PO SCH ×2 (09:54→22:02)
[2021-06-13] MEDS: LEVETIRACETAM 500MG/5ML CUP GT SCH ×2 (09:54→18:04)
[2021-06-14] VITALS (12 sets, daily range): BP systolic 107–150; BP diastolic 63–92
[2021-06-14] MEDS: IPRATROPIUM/ALBUTEROL 0.5-3(2.5)MG/3ML NEB HHN SCH ×4 (01:23→20:43)
[2021-06-14] MEDS: ACETAMINOPHEN 650MG/20.3ML UDC GT PRN (03:50)
[2021-06-14] MEDS: GUAIFENESIN 200MG/10ML SUGAR FREE UDC PO SCH ×4 (05:27→23:43)
[2021-06-14] MEDS: METOCLOPRAMIDE HCL 10MG/2ML VIAL IV SCH ×4 (05:27→23:43)
[2021-06-14 06:09] LABS: HEMOGLOBIN. 10.4 g/dL (14.0-18.0); MEAN CORPUSCULAR HEMOGLOBIN 29.8 pg (28.0-32.0); MEAN PLATELET VOLUME 9.2 fl (7.4-10.4); PLATELET 286 x1000/uL (130-400); RED BLOOD CELL COUNT 3.48 mill/uL (4.7-6.1); RED CELL DISTRIBUTION WIDTH 13.5 % (11.6-14.6)
[2021-06-14] MEDS: BLOOD SUGAR DIAGNOSTIC STRIP TEST SCH ×4 (08:06→21:33)
[2021-06-14] MEDS: INSULIN LISPRO 100 UNITS/ML SUBCUT SCH ×4 (08:21→21:33)
[2021-06-14] MEDS: LEVETIRACETAM 500MG/5ML CUP GT SCH ×2 (08:23→18:48)
[2021-06-14] MEDS: ZINC SULFATE 220 MG ( 50 ) CAPSULE PO SCH (08:23)
[2021-06-14] MEDS: CARVEDILOL 6.25 MG TABLET GT SCH ×2 (08:23→21:24)
[2021-06-14] MEDS: FAMOTIDINE 20MG TABLET GT SCH (08:23)
[2021-06-14] MEDS: SULFAMETHOXAZOLE/TRIMETHOPRIM 800/160MG TABLET PO SCH ×2 (08:24→21:24)
[2021-06-14] MEDS: ASCORBIC ACID 500 MG TABLET PO SCH (08:24)
[2021-06-14] MEDS: INSULIN GLARGINE UD 100 UNITS/ML SYR SUBCUT SCH ×2 (11:06→22:43)
[2021-06-14 11:27] LABS: BG BASE EXCESS -3.3 mmol/L (-2.0-2.0); BG CARBOXYHEMOGLOBIN 0.3 % (0.5-1.5); BG DEOXYHEMOGLOBIN 1.5 % (0.0-5.0); BG FRACTION INSPIRED OXYGEN 40; BG HCO3 ACT 19.7 mmol/L (22.0-26.0); BG METHEMOGLOBIN 0.5 % (0.0-1.5); BG OXYGEN SATURATION 98.5 % (92.0-98.5); BG OXYHEMOGLOBIN 97.7 % (94.0-97.0); BG PCO2 28.8 mmHg (35.0-45.0); BG PH 7.452 (7.350-7.450); BG PO2 141.2 mmHg (75.0-100.0); BG SAMPLE SITE LEFT RADIAL; BG TOTAL HEMOGLOBIN 11.2 g/dL (12.0-18.0); BG VENT MODE VENT - AC
[2021-06-14 13:35] LABS: NUCLEATED RED BLOOD CELLS 1 /100 WBC
[2021-06-14 13:36] LABS: PLATELET ESTIMATE NORMAL
[2021-06-15] VITALS (12 sets, daily range): BP systolic 125–161; BP diastolic 76–97
[2021-06-15] MEDS: IPRATROPIUM/ALBUTEROL 0.5-3(2.5)MG/3ML NEB HHN SCH ×4 (01:23→20:22)
[2021-06-15] MEDS: GUAIFENESIN 200MG/10ML SUGAR FREE UDC PO SCH ×3 (05:08→17:34)
[2021-06-15] MEDS: METOCLOPRAMIDE HCL 10MG/2ML VIAL IV SCH ×3 (05:09→17:35)
[2021-06-15] MEDS: BLOOD SUGAR DIAGNOSTIC STRIP TEST SCH ×4 (07:30→21:00)
[2021-06-15] MEDS: ZINC SULFATE 220 MG ( 50 ) CAPSULE PO SCH (08:47)
[2021-06-15] MEDS: LEVETIRACETAM 500MG/5ML CUP GT SCH ×2 (08:47→17:34)
[2021-06-15] MEDS: SULFAMETHOXAZOLE/TRIMETHOPRIM 800/160MG TABLET PO SCH ×2 (08:47→21:59)
[2021-06-15] MEDS: ASCORBIC ACID 500 MG TABLET PO SCH (08:48)
[2021-06-15] MEDS: FAMOTIDINE 20MG TABLET GT SCH (08:48)
[2021-06-15] MEDS: CARVEDILOL 6.25 MG TABLET GT SCH ×2 (08:48→22:00)
[2021-06-15] MEDS: INSULIN LISPRO 100 UNITS/ML SUBCUT SCH ×5 (08:49→22:01)
[2021-06-15] MEDS: INSULIN GLARGINE UD 100 UNITS/ML SYR SUBCUT SCH ×2 (10:38→22:00)
[2021-06-15] MEDS: ACETAMINOPHEN 650MG/20.3ML UDC GT PRN (16:47)
[2021-06-16] VITALS (12 sets, daily range): BP systolic 97–156; BP diastolic 71–106
[2021-06-16] MEDS: IPRATROPIUM/ALBUTEROL 0.5-3(2.5)MG/3ML NEB HHN SCH ×4 (00:27→20:34)
[2021-06-16] MEDS: GUAIFENESIN 200MG/10ML SUGAR FREE UDC PO SCH ×4 (00:36→18:00)
[2021-06-16] MEDS: METOCLOPRAMIDE HCL 10MG/2ML VIAL IV SCH ×4 (00:37→18:00)
[2021-06-16] MEDS: BLOOD SUGAR DIAGNOSTIC STRIP TEST SCH ×4 (07:21→21:48)
[2021-06-16] MEDS: INSULIN LISPRO 100 UNITS/ML SUBCUT SCH ×4 (07:35→21:53)
[2021-06-16] MEDS: FAMOTIDINE 20MG TABLET GT SCH (09:32)
[2021-06-16] MEDS: SULFAMETHOXAZOLE/TRIMETHOPRIM 800/160MG TABLET PO SCH ×2 (09:32→20:15)
[2021-06-16] MEDS: LEVETIRACETAM 500MG/5ML CUP GT SCH ×2 (09:32→18:28)
[2021-06-16] MEDS: ZINC SULFATE 220 MG ( 50 ) CAPSULE PO SCH (09:32)
[2021-06-16] MEDS: CARVEDILOL 6.25 MG TABLET GT SCH ×2 (09:33→20:14)
[2021-06-16] MEDS: ASCORBIC ACID 500 MG TABLET PO SCH (09:33)
[2021-06-16] MEDS: INSULIN GLARGINE UD 100 UNITS/ML SYR SUBCUT SCH ×2 (10:00→22:40)
[2021-06-16 13:14] LABS: BASOPHILS % 0.8 % (0.0-2.0); EOSINOPHILS % 5.7 % (0.0-5.0); HEMATOCRIT. 35.2 % (42.0-52.0); HEMOGLOBIN. 11.5 g/dL (14.0-18.0); LYMPHOCYTES % 12.4 % (20.0-50.0); MEAN CORPUSCULAR HEMOGLOBIN 29.2 pg (28.0-32.0); MEAN CORPUSCULAR VOLUME 89.5 fL (80.0-94.0); MEAN PLATELET VOLUME 8.8 fl (7.4-10.4); MONOCYTES % 7.2 % (2.0-8.0); NEUTROPHILS % 73.9 % (40.0-76.0); PLATELET 399 x1000/uL (130-400); RED BLOOD CELL COUNT 3.93 mill/uL (4.7-6.1); RED CELL DISTRIBUTION WIDTH 13.5 % (11.6-14.6)
[2021-06-17] VITALS (12 sets, daily range): BP systolic 125–170; BP diastolic 69–107
[2021-06-17] MEDS: GUAIFENESIN 200MG/10ML SUGAR FREE UDC PO SCH ×5 (00:48→23:10)
[2021-06-17] MEDS: METOCLOPRAMIDE HCL 10MG/2ML VIAL IV SCH ×5 (00:48→23:10)
[2021-06-17] MEDS: IPRATROPIUM/ALBUTEROL 0.5-3(2.5)MG/3ML NEB HHN SCH ×4 (01:38→20:12)
[2021-06-17 06:12] LABS: EOSINOPHILS % 5.7 % (0.0-5.0); LYMPHOCYTES % 13.8 % (20.0-50.0); MEAN CORPUSCULAR HEMOGLOBIN 29.5 pg (28.0-32.0); MEAN PLATELET VOLUME 8.3 fl (7.4-10.4); MONOCYTES % 6.7 % (2.0-8.0); NEUTROPHILS % 72.8 % (40.0-76.0); PLATELET 422 x1000/uL (130-400); RED BLOOD CELL COUNT 3.75 mill/uL (4.7-6.1); RED CELL DISTRIBUTION WIDTH 13.2 % (11.6-14.6)
[2021-06-17] MEDS: BLOOD SUGAR DIAGNOSTIC STRIP TEST SCH ×4 (07:18→20:55)
[2021-06-17] MEDS: INSULIN LISPRO 100 UNITS/ML SUBCUT SCH ×4 (09:10→20:55)
[2021-06-17] MEDS: FAMOTIDINE 20MG TABLET GT SCH (09:11)
[2021-06-17] MEDS: ASCORBIC ACID 500 MG TABLET PO SCH (09:11)
[2021-06-17] MEDS: LEVETIRACETAM 500MG/5ML CUP GT SCH ×2 (09:11→17:27)
[2021-06-17] MEDS: SULFAMETHOXAZOLE/TRIMETHOPRIM 800/160MG TABLET PO SCH (09:11)
[2021-06-17] MEDS: CARVEDILOL 6.25 MG TABLET GT SCH ×2 (09:11→21:04)
[2021-06-17] MEDS: ZINC SULFATE 220 MG ( 50 ) CAPSULE PO SCH (09:11)
[2021-06-17] MEDS: INSULIN GLARGINE UD 100 UNITS/ML SYR SUBCUT SCH ×2 (11:29→21:06)
[2021-06-17] MEDS: MEROPENEM 1,000 MG in SODIUM CHLORIDE 0.9% 100 ML IV SCH (17:27)
[2021-06-17] MEDS: COLISTIMETHATE SODIUM 150MG/VIAL INH SCH (20:12)
[2021-06-17] MEDS: HYDRALAZINE 20MG/ML VIAL IV PRN (22:19)
[2021-06-18] VITALS (12 sets, daily range): BP systolic 126–165; BP diastolic 76–95
[2021-06-18] MEDS: IPRATROPIUM/ALBUTEROL 0.5-3(2.5)MG/3ML NEB HHN SCH ×3 (00:22→21:28)
[2021-06-18] MEDS: CLONIDINE 0.1MG TABLET PO PRN (01:46)
[2021-06-18] MEDS: MEROPENEM 1,000 MG in SODIUM CHLORIDE 0.9% 100 ML IV SCH ×2 (03:01→15:47)
[2021-06-18] MEDS: GUAIFENESIN 200MG/10ML SUGAR FREE UDC PO SCH ×4 (05:05→23:17)
[2021-06-18] MEDS: METOCLOPRAMIDE HCL 10MG/2ML VIAL IV SCH ×4 (05:05→23:18)
[2021-06-18] MEDS: BLOOD SUGAR DIAGNOSTIC STRIP TEST SCH ×3 (07:30→20:41)
[2021-06-18] MEDS: CARVEDILOL 6.25 MG TABLET GT SCH ×2 (08:27→20:40)
[2021-06-18] MEDS: ASCORBIC ACID 500 MG TABLET PO SCH (08:27)
[2021-06-18] MEDS: ZINC SULFATE 220 MG ( 50 ) CAPSULE PO SCH (08:27)
[2021-06-18] MEDS: LEVETIRACETAM 500MG/5ML CUP GT SCH ×2 (08:27→18:17)
[2021-06-18] MEDS: INSULIN LISPRO 100 UNITS/ML SUBCUT SCH ×4 (08:28→22:12)
[2021-06-18] MEDS: COLISTIMETHATE SODIUM 150MG/VIAL INH SCH (09:30)
[2021-06-18] MEDS: INSULIN GLARGINE UD 100 UNITS/ML SYR SUBCUT SCH ×2 (10:59→22:11)
[2021-06-18] MEDS: FAMOTIDINE 20MG TABLET GT SCH (11:06)
[2021-06-19] VITALS (13 sets, daily range): BP systolic 136–170; BP diastolic 80–110
[2021-06-19] MEDS: IPRATROPIUM/ALBUTEROL 0.5-3(2.5)MG/3ML NEB HHN SCH ×4 (00:19→20:33)
[2021-06-19] MEDS: COLISTIMETHATE SODIUM 150MG/VIAL INH SCH ×2 (00:21→08:25)
[2021-06-19] MEDS: HYDRALAZINE 20MG/ML VIAL IV PRN ×2 (00:48→09:25)
[2021-06-19] MEDS: GUAIFENESIN 200MG/10ML SUGAR FREE UDC PO SCH ×4 (05:16→23:45)
[2021-06-19] MEDS: MEROPENEM 1,000 MG in SODIUM CHLORIDE 0.9% 100 ML IV SCH ×2 (05:16→16:30)
[2021-06-19] MEDS: METOCLOPRAMIDE HCL 10MG/2ML VIAL IV SCH ×4 (05:17→23:46)
[2021-06-19] MEDS: BLOOD SUGAR DIAGNOSTIC STRIP TEST SCH ×4 (07:30→21:00)
[2021-06-19] MEDS: CARVEDILOL 6.25 MG TABLET GT SCH ×2 (09:24→22:24)
[2021-06-19] MEDS: LEVETIRACETAM 500MG/5ML CUP GT SCH ×2 (09:24→16:30)
[2021-06-19] MEDS: ZINC SULFATE 220 MG ( 50 ) CAPSULE PO SCH (09:25)
[2021-06-19] MEDS: ASCORBIC ACID 500 MG TABLET PO SCH (09:25)
[2021-06-19] MEDS: INSULIN LISPRO 100 UNITS/ML SUBCUT SCH ×4 (09:26→21:00)
[2021-06-19] MEDS: FAMOTIDINE 20MG TABLET GT SCH (09:26)
[2021-06-19] MEDS: INSULIN GLARGINE UD 100 UNITS/ML SYR SUBCUT SCH ×2 (10:43→22:25)
[2021-06-20] VITALS (12 sets, daily range): BP systolic 121–154; BP diastolic 77–94
[2021-06-20] MEDS: COLISTIMETHATE SODIUM 150MG/VIAL INH SCH ×2 (00:14→09:12)
[2021-06-20] MEDS: IPRATROPIUM/ALBUTEROL 0.5-3(2.5)MG/3ML NEB HHN SCH ×5 (01:28→20:20)
[2021-06-20] MEDS: MEROPENEM 1,000 MG in SODIUM CHLORIDE 0.9% 100 ML IV SCH ×2 (04:15→17:35)
[2021-06-20] MEDS: GUAIFENESIN 200MG/10ML SUGAR FREE UDC PO SCH ×3 (05:44→17:33)
[2021-06-20] MEDS: METOCLOPRAMIDE HCL 10MG/2ML VIAL IV SCH ×3 (05:44→17:33)
[2021-06-20] MEDS: BLOOD SUGAR DIAGNOSTIC STRIP TEST SCH ×4 (07:30→21:24)
[2021-06-20] MEDS: ASCORBIC ACID 500 MG TABLET PO SCH (08:02)
[2021-06-20] MEDS: CARVEDILOL 6.25 MG TABLET GT SCH ×2 (08:02→21:21)
[2021-06-20] MEDS: ZINC SULFATE 220 MG ( 50 ) CAPSULE PO SCH (08:02)
[2021-06-20] MEDS: LEVETIRACETAM 500MG/5ML CUP GT SCH ×2 (08:02→17:35)
[2021-06-20] MEDS: FAMOTIDINE 20MG TABLET GT SCH (08:02)
[2021-06-20] MEDS: INSULIN LISPRO 100 UNITS/ML SUBCUT SCH ×4 (08:03→21:22)
[2021-06-20] MEDS: INSULIN GLARGINE UD 100 UNITS/ML SYR SUBCUT SCH ×2 (10:31→21:22)
[2021-06-21] VITALS (12 sets, daily range): BP systolic 129–171; BP diastolic 85–102
[2021-06-21] MEDS: IPRATROPIUM/ALBUTEROL 0.5-3(2.5)MG/3ML NEB HHN SCH ×4 (00:12→20:07)
[2021-06-21] MEDS: METOCLOPRAMIDE HCL 10MG/2ML VIAL IV SCH ×2 (00:15→06:00)
[2021-06-21] MEDS: GUAIFENESIN 200MG/10ML SUGAR FREE UDC PO SCH ×4 (00:15→17:44)
[2021-06-21] MEDS: COLISTIMETHATE SODIUM 150MG/VIAL INH SCH ×3 (00:31→20:07)
[2021-06-21] MEDS: MEROPENEM 1,000 MG in SODIUM CHLORIDE 0.9% 100 ML IV SCH ×2 (04:00→16:43)
[2021-06-21] MEDS: INSULIN LISPRO 100 UNITS/ML SUBCUT SCH ×4 (08:00→20:59)
[2021-06-21] MEDS: LEVETIRACETAM 500MG/5ML CUP GT SCH ×2 (08:19→17:44)
[2021-06-21] MEDS: ASCORBIC ACID 500 MG TABLET PO SCH (08:19)
[2021-06-21] MEDS: ZINC SULFATE 220 MG ( 50 ) CAPSULE PO SCH (08:19)
[2021-06-21] MEDS: BLOOD SUGAR DIAGNOSTIC STRIP TEST SCH ×4 (08:20→21:19)
[2021-06-21] MEDS: FAMOTIDINE 20MG TABLET GT SCH (08:20)
[2021-06-21] MEDS: CARVEDILOL 6.25 MG TABLET GT SCH ×2 (08:20→21:10)
[2021-06-21] MEDS: INSULIN GLARGINE UD 100 UNITS/ML SYR SUBCUT SCH ×2 (10:23→21:19)
[2021-06-21] MEDS: VANCOMYCIN HCL 1000 MG/20 ML ORAL PO SCH ×2 (12:55→17:44)
[2021-06-21] MEDS: CLONIDINE 0.1MG TABLET PO PRN (16:55)
[2021-06-21] MEDS: ENOXAPARIN 40MG/0.4ML SYR SUBCUT SCH (21:18)
[2021-06-22] VITALS (12 sets, daily range): BP systolic 132–152; BP diastolic 92–104
[2021-06-22] MEDS: IPRATROPIUM/ALBUTEROL 0.5-3(2.5)MG/3ML NEB HHN SCH ×4 (00:46→21:04)
[2021-06-22] MEDS: MEROPENEM 1,000 MG in SODIUM CHLORIDE 0.9% 100 ML IV SCH ×2 (04:00→16:33)
[2021-06-22 05:25] LABS: BASOPHILS % 0.5 % (0.0-2.0); EOSINOPHILS % 3.9 % (0.0-5.0); HEMATOCRIT. 35.2 % (42.0-52.0); HEMOGLOBIN. 11.6 g/dL (14.0-18.0); LYMPHOCYTES % 14.9 % (20.0-50.0); MEAN CORPUSCULAR HEMOGLOBIN 29.4 pg (28.0-32.0); MEAN CORPUSCULAR VOLUME 89.3 fL (80.0-94.0); MEAN PLATELET VOLUME 7.4 fl (7.4-10.4); NEUTROPHILS % 74.7 % (40.0-76.0); PLATELET 441 x1000/uL (130-400); RED BLOOD CELL COUNT 3.94 mill/uL (4.7-6.1); RED CELL DISTRIBUTION WIDTH 13.8 % (11.6-14.6)
[2021-06-22] MEDS: GUAIFENESIN 200MG/10ML SUGAR FREE UDC PO SCH ×5 (06:29→23:15)
[2021-06-22] MEDS: VANCOMYCIN HCL 1000 MG/20 ML ORAL PO SCH ×5 (06:29→23:15)
[2021-06-22] MEDS: INSULIN LISPRO 100 UNITS/ML SUBCUT SCH ×4 (08:00→23:14)
[2021-06-22] MEDS: BLOOD SUGAR DIAGNOSTIC STRIP TEST SCH ×4 (08:26→23:12)
[2021-06-22] MEDS: LEVETIRACETAM 500MG/5ML CUP GT SCH ×2 (09:33→17:59)
[2021-06-22] MEDS: FAMOTIDINE 20MG TABLET GT SCH (09:33)
[2021-06-22] MEDS: ASCORBIC ACID 500 MG TABLET PO SCH (09:33)
[2021-06-22] MEDS: CARVEDILOL 6.25 MG TABLET GT SCH ×2 (09:33→21:57)
[2021-06-22] MEDS: ZINC SULFATE 220 MG ( 50 ) CAPSULE PO SCH (09:33)
[2021-06-22] MEDS: INSULIN GLARGINE UD 100 UNITS/ML SYR SUBCUT SCH ×2 (09:35→23:11)
[2021-06-22] MEDS: COLISTIMETHATE SODIUM 150MG/VIAL INH SCH (16:56)
[2021-06-22] MEDS: ENOXAPARIN 40MG/0.4ML SYR SUBCUT SCH (21:58)
[2021-06-23] VITALS (12 sets, daily range): BP systolic 122–154; BP diastolic 77–97
[2021-06-23] MEDS: IPRATROPIUM/ALBUTEROL 0.5-3(2.5)MG/3ML NEB HHN SCH ×4 (00:55→20:09)
[2021-06-23] MEDS: MEROPENEM 1,000 MG in SODIUM CHLORIDE 0.9% 100 ML IV SCH ×2 (04:54→16:56)
[2021-06-23] MEDS: VANCOMYCIN HCL 1000 MG/20 ML ORAL PO SCH ×4 (05:02→23:33)
[2021-06-23] MEDS: GUAIFENESIN 200MG/10ML SUGAR FREE UDC PO SCH ×4 (05:02→23:33)
[2021-06-23] MEDS: BLOOD SUGAR DIAGNOSTIC STRIP TEST SCH ×4 (05:13→23:20)
[2021-06-23] MEDS: INSULIN LISPRO 100 UNITS/ML SUBCUT SCH ×4 (05:36→23:37)
[2021-06-23] MEDS: COLISTIMETHATE SODIUM 150MG/VIAL INH SCH ×2 (05:36→20:25)
[2021-06-23] MEDS: ASCORBIC ACID 500 MG TABLET PO SCH (08:14)
[2021-06-23] MEDS: CARVEDILOL 6.25 MG TABLET GT SCH ×2 (08:14→20:46)
[2021-06-23] MEDS: ZINC SULFATE 220 MG ( 50 ) CAPSULE PO SCH (08:14)
[2021-06-23] MEDS: FAMOTIDINE 20MG TABLET GT SCH (08:14)
[2021-06-23] MEDS: LEVETIRACETAM 500MG/5ML CUP GT SCH ×2 (08:14→16:56)
[2021-06-23] MEDS: INSULIN GLARGINE UD 100 UNITS/ML SYR SUBCUT SCH ×2 (10:00→23:37)
[2021-06-23] MEDS: ENOXAPARIN 40MG/0.4ML SYR SUBCUT SCH (20:46)
[2021-06-23] MEDS: CLONIDINE 0.1MG TABLET PO PRN (23:33)
[2021-06-24] VITALS (17 sets, daily range): BP systolic 122–171; BP diastolic 68–127
[2021-06-24] MEDS: IPRATROPIUM/ALBUTEROL 0.5-3(2.5)MG/3ML NEB HHN SCH ×4 (00:09→20:42)
[2021-06-24] MEDS: GUAIFENESIN 200MG/10ML SUGAR FREE UDC PO SCH ×4 (04:52→23:00)
[2021-06-24] MEDS: MEROPENEM 1,000 MG in SODIUM CHLORIDE 0.9% 100 ML IV SCH ×2 (04:52→15:29)
[2021-06-24] MEDS: BLOOD SUGAR DIAGNOSTIC STRIP TEST SCH ×4 (05:00→23:01)
[2021-06-24] MEDS: VANCOMYCIN HCL 1000 MG/20 ML ORAL PO SCH ×4 (05:00→23:01)
[2021-06-24] MEDS: INSULIN LISPRO 100 UNITS/ML SUBCUT SCH ×4 (05:46→23:01)
[2021-06-24] MEDS: LEVETIRACETAM 500MG/5ML CUP GT SCH ×2 (08:38→16:13)
[2021-06-24] MEDS: FAMOTIDINE 20MG TABLET GT SCH (08:38)
[2021-06-24] MEDS: ZINC SULFATE 220 MG ( 50 ) CAPSULE PO SCH (08:38)
[2021-06-24] MEDS: CARVEDILOL 6.25 MG TABLET GT SCH ×2 (08:38→21:22)
[2021-06-24] MEDS: ASCORBIC ACID 500 MG TABLET PO SCH (08:38)
[2021-06-24] MEDS: HYDRALAZINE 20MG/ML VIAL IV PRN (10:24)
[2021-06-24] MEDS: INSULIN GLARGINE UD 100 UNITS/ML SYR SUBCUT SCH ×2 (10:25→21:22)
[2021-06-24] MEDS: COLISTIMETHATE SODIUM 150MG/VIAL INH SCH (20:43)
[2021-06-24] MEDS: ENOXAPARIN 40MG/0.4ML SYR SUBCUT SCH (21:21)
[2021-06-25] VITALS (12 sets, daily range): BP systolic 117–174; BP diastolic 72–101
[2021-06-25] MEDS: IPRATROPIUM/ALBUTEROL 0.5-3(2.5)MG/3ML NEB HHN SCH ×4 (01:32→20:24)
[2021-06-25] MEDS: CLONIDINE 0.1MG TABLET PO PRN (03:02)
[2021-06-25] MEDS: INSULIN LISPRO 100 UNITS/ML SUBCUT SCH ×3 (05:17→18:30)
[2021-06-25] MEDS: BLOOD SUGAR DIAGNOSTIC STRIP TEST SCH ×3 (05:17→18:30)
[2021-06-25] MEDS: VANCOMYCIN HCL 1000 MG/20 ML ORAL PO SCH ×3 (05:17→19:36)
[2021-06-25] MEDS: GUAIFENESIN 200MG/10ML SUGAR FREE UDC PO SCH ×3 (05:17→18:30)
[2021-06-25 06:51] LABS: CHLORIDE 116 mEq/L (98-107)
[2021-06-25 06:54] LABS: BASOPHILS % 1.1 % (0.0-2.0); EOSINOPHILS % 5.5 % (0.0-5.0); HEMOGLOBIN. 11.4 g/dL (14.0-18.0); LYMPHOCYTES % 26.1 % (20.0-50.0); MEAN CORPUSCULAR HEMOGLOBIN 29.3 pg (28.0-32.0); MEAN CORPUSCULAR VOLUME 92.3 fL (80.0-94.0); MONOCYTES % 7.6 % (2.0-8.0); NEUTROPHILS % 59.7 % (40.0-76.0)
[2021-06-25 08:45] LABS: MEAN PLATELET VOLUME 7.5 fl (7.4-10.4)
[2021-06-25] MEDS: LEVETIRACETAM 500MG/5ML CUP GT SCH ×2 (08:45→18:30)
[2021-06-25] MEDS: FAMOTIDINE 20MG TABLET GT SCH (08:45)
[2021-06-25 08:46] LABS: PLATELET 340 x1000/uL (130-400)
[2021-06-25] MEDS: CARVEDILOL 6.25 MG TABLET GT SCH ×2 (08:46→21:30)
[2021-06-25] MEDS: ZINC SULFATE 220 MG ( 50 ) CAPSULE PO SCH (08:46)
[2021-06-25] MEDS: ASCORBIC ACID 500 MG TABLET PO SCH (08:46)
[2021-06-25] MEDS: INSULIN GLARGINE UD 100 UNITS/ML SYR SUBCUT SCH ×2 (10:29→21:31)
[2021-06-25] MEDS: HYDRALAZINE 20MG/ML VIAL IV PRN (14:00)
[2021-06-25] MEDS: ENOXAPARIN 40MG/0.4ML SYR SUBCUT SCH (21:31)
[2021-06-26] VITALS (13 sets, daily range): BP systolic 121–181; BP diastolic 78–102
[2021-06-26] MEDS: GUAIFENESIN 200MG/10ML SUGAR FREE UDC PO SCH ×4 (00:31→17:47)
[2021-06-26] MEDS: VANCOMYCIN HCL 1000 MG/20 ML ORAL PO SCH ×3 (00:32→11:48)
[2021-06-26] MEDS: BLOOD SUGAR DIAGNOSTIC STRIP TEST SCH ×4 (00:37→17:52)
[2021-06-26] MEDS: IPRATROPIUM/ALBUTEROL 0.5-3(2.5)MG/3ML NEB HHN SCH ×4 (04:47→20:22)
[2021-06-26] MEDS: INSULIN LISPRO 100 UNITS/ML SUBCUT SCH ×4 (05:08→18:00)
[2021-06-26] MEDS: ZINC SULFATE 220 MG ( 50 ) CAPSULE PO SCH (08:41)
[2021-06-26] MEDS: CARVEDILOL 6.25 MG TABLET GT SCH ×2 (08:41→21:08)
[2021-06-26] MEDS: FAMOTIDINE 20MG TABLET GT SCH (08:41)
[2021-06-26] MEDS: ASCORBIC ACID 500 MG TABLET PO SCH (08:41)
[2021-06-26] MEDS: LEVETIRACETAM 500MG/5ML CUP GT SCH ×2 (08:41→17:47)
[2021-06-26] MEDS: INSULIN GLARGINE UD 100 UNITS/ML SYR SUBCUT SCH (10:12)
[2021-06-26] MEDS: CLONIDINE 0.1MG TABLET PO PRN (11:48)
[2021-06-26] MEDS: ENOXAPARIN 40MG/0.4ML SYR SUBCUT SCH (21:09)
[2021-06-27] VITALS (12 sets, daily range): BP systolic 119–152; BP diastolic 79–97
[2021-06-27] MEDS: BLOOD SUGAR DIAGNOSTIC STRIP TEST SCH ×4 (00:15→17:32)
[2021-06-27] MEDS: GUAIFENESIN 200MG/10ML SUGAR FREE UDC PO SCH ×4 (00:22→17:31)
[2021-06-27] MEDS: INSULIN GLARGINE UD 100 UNITS/ML SYR SUBCUT SCH ×2 (00:23→10:21)
[2021-06-27] MEDS: INSULIN LISPRO 100 UNITS/ML SUBCUT SCH ×4 (00:23→17:32)
[2021-06-27] MEDS: IPRATROPIUM/ALBUTEROL 0.5-3(2.5)MG/3ML NEB HHN SCH ×4 (04:16→21:35)
[2021-06-27] MEDS: ZINC SULFATE 220 MG ( 50 ) CAPSULE PO SCH (08:27)
[2021-06-27] MEDS: LEVETIRACETAM 500MG/5ML CUP GT SCH ×2 (08:27→17:31)
[2021-06-27] MEDS: CARVEDILOL 6.25 MG TABLET GT SCH ×2 (08:28→21:30)
[2021-06-27] MEDS: ASCORBIC ACID 500 MG TABLET PO SCH (08:28)
[2021-06-27] MEDS: FAMOTIDINE 20MG TABLET GT SCH (08:28)
[2021-06-27] MEDS: HYDRALAZINE 20MG/ML VIAL IV PRN (12:07)
[2021-06-27] MEDS: CLONIDINE 0.1MG TABLET PO PRN (14:59)
[2021-06-27 19:04] LABS: BASOPHILS % 0.5 % (0.0-2.0); CHLORIDE 113 mEq/L (98-107); EOSINOPHILS % 2.7 % (0.0-5.0); HEMATOCRIT. 35.9 % (42.0-52.0); HEMOGLOBIN. 11.5 g/dL (14.0-18.0); MEAN CORPUSCULAR HEMOGLOBIN 29.2 pg (28.0-32.0); MEAN CORPUSCULAR VOLUME 91.1 fL (80.0-94.0); MEAN PLATELET VOLUME 7.5 fl (7.4-10.4); MONOCYTES % 6.6 % (2.0-8.0); NEUTROPHILS % 78.2 % (40.0-76.0); PLATELET 349 x1000/uL (130-400); RED BLOOD CELL COUNT 3.94 mill/uL (4.7-6.1); RED CELL DISTRIBUTION WIDTH 14.3 % (11.6-14.6)
[2021-06-27] MEDS: ENOXAPARIN 40MG/0.4ML SYR SUBCUT SCH (21:09)
[2021-06-28] VITALS (12 sets, daily range): BP systolic 109–165; BP diastolic 74–105
[2021-06-28] MEDS: INSULIN LISPRO 100 UNITS/ML SUBCUT SCH ×4 (00:19→17:01)
[2021-06-28] MEDS: INSULIN GLARGINE UD 100 UNITS/ML SYR SUBCUT SCH ×3 (00:20→22:53)
[2021-06-28] MEDS: GUAIFENESIN 200MG/10ML SUGAR FREE UDC PO SCH ×4 (00:23→17:00)
[2021-06-28] MEDS: IPRATROPIUM/ALBUTEROL 0.5-3(2.5)MG/3ML NEB HHN SCH ×4 (02:15→21:37)
[2021-06-28] MEDS: BLOOD SUGAR DIAGNOSTIC STRIP TEST SCH ×4 (06:00→17:21)
[2021-06-28] MEDS: FAMOTIDINE 20MG TABLET GT SCH (09:10)
[2021-06-28] MEDS: ZINC SULFATE 220 MG ( 50 ) CAPSULE PO SCH (09:10)
[2021-06-28] MEDS: ASCORBIC ACID 500 MG TABLET PO SCH (09:10)
[2021-06-28] MEDS: LEVETIRACETAM 500MG/5ML CUP GT SCH ×2 (09:10→16:53)
[2021-06-28] MEDS: CARVEDILOL 6.25 MG TABLET GT SCH ×2 (09:10→20:34)
[2021-06-28] MEDS: HYDRALAZINE 20MG/ML VIAL IV PRN (15:50)
[2021-06-28] MEDS: ENOXAPARIN 40MG/0.4ML SYR SUBCUT SCH (20:34)
[2021-06-29] VITALS (12 sets, daily range): BP systolic 132–192; BP diastolic 88–103
[2021-06-29] MEDS: GUAIFENESIN 200MG/10ML SUGAR FREE UDC PO SCH ×5 (00:53→23:32)
[2021-06-29] MEDS: BLOOD SUGAR DIAGNOSTIC STRIP TEST SCH ×5 (00:53→23:33)
[2021-06-29] MEDS: INSULIN LISPRO 100 UNITS/ML SUBCUT SCH ×5 (05:06→23:32)
[2021-06-29] MEDS: IPRATROPIUM/ALBUTEROL 0.5-3(2.5)MG/3ML NEB HHN SCH ×3 (09:08→20:01)
[2021-06-29] MEDS: LEVETIRACETAM 500MG/5ML CUP GT SCH ×2 (09:55→17:58)
[2021-06-29] MEDS: ASCORBIC ACID 500 MG TABLET PO SCH (09:55)
[2021-06-29] MEDS: ZINC SULFATE 220 MG ( 50 ) CAPSULE PO SCH (09:55)
[2021-06-29] MEDS: CARVEDILOL 6.25 MG TABLET GT SCH ×2 (09:55→21:19)
[2021-06-29] MEDS: HYDRALAZINE 20MG/ML VIAL IV PRN ×2 (09:55→18:55)
[2021-06-29] MEDS: FAMOTIDINE 20MG TABLET GT SCH (09:55)
[2021-06-29] MEDS: INSULIN GLARGINE UD 100 UNITS/ML SYR SUBCUT SCH ×2 (10:07→21:17)
[2021-06-29 15:02] LABS: BG BASE EXCESS 1.1 mmol/L (-2.0-2.0); BG CARBOXYHEMOGLOBIN 0.3 % (0.5-1.5); BG DEOXYHEMOGLOBIN 2.3 % (0.0-5.0); BG FRACTION INSPIRED OXYGEN 30; BG HCO3 ACT 24.2 mmol/L (22.0-26.0); BG METHEMOGLOBIN 0.5 % (0.0-1.5); BG OXYGEN SATURATION 97.7 % (92.0-98.5); BG OXYHEMOGLOBIN 96.9 % (94.0-97.0); BG PCO2 33.8 mmHg (35.0-45.0); BG PH 7.473 (7.350-7.450); BG PO2 105.1 mmHg (75.0-100.0); BG SAMPLE SITE LEFT RADIAL; BG TOTAL HEMOGLOBIN 12.6 g/dL (12.0-18.0); BG TOTAL RESPIRATORY RATE 17 b/min; BG VENT MODE VENT - SIMV
[2021-06-29] MEDS: ENOXAPARIN 40MG/0.4ML SYR SUBCUT SCH (21:19)
[2021-06-30] VITALS (8 sets, daily range): BP systolic 138–160; BP diastolic 86–100
[2021-06-30] MEDS: IPRATROPIUM/ALBUTEROL 0.5-3(2.5)MG/3ML NEB HHN SCH ×3 (00:05→12:44)
[2021-06-30] MEDS: INSULIN LISPRO 100 UNITS/ML SUBCUT SCH ×2 (05:29→12:42)
[2021-06-30] MEDS: GUAIFENESIN 200MG/10ML SUGAR FREE UDC PO SCH ×2 (05:29→12:07)
[2021-06-30] MEDS: BLOOD SUGAR DIAGNOSTIC STRIP TEST SCH ×2 (05:29→12:42)
[2021-06-30 06:47] LABS: EOSINOPHILS % 4.8 % (0.0-5.0); HEMATOCRIT. 35.1 % (42.0-52.0); HEMOGLOBIN. 11.5 g/dL (14.0-18.0); LYMPHOCYTES % 20.6 % (20.0-50.0); MEAN CORPUSCULAR HEMOGLOBIN 29.8 pg (28.0-32.0); MEAN CORPUSCULAR VOLUME 90.8 fL (80.0-94.0); MEAN PLATELET VOLUME 8.2 fl (7.4-10.4); MONOCYTES % 7.1 % (2.0-8.0); NEUTROPHILS % 66.5 % (40.0-76.0); PLATELET 311 x1000/uL (130-400); RED BLOOD CELL COUNT 3.87 mill/uL (4.7-6.1); RED CELL DISTRIBUTION WIDTH 14.6 % (11.6-14.6)
[2021-06-30 06:49] LABS: CHLORIDE 112 mEq/L (98-107)
[2021-06-30] MEDS: HYDRALAZINE 20MG/ML VIAL IV PRN ×2 (07:56→14:27)
[2021-06-30] MEDS: ASCORBIC ACID 500 MG TABLET PO SCH (08:00)
[2021-06-30] MEDS: FAMOTIDINE 20MG TABLET GT SCH (08:00)
[2021-06-30] MEDS: LEVETIRACETAM 500MG/5ML CUP GT SCH (08:00)
[2021-06-30] MEDS: CARVEDILOL 6.25 MG TABLET GT SCH (08:00)
[2021-06-30] MEDS: ZINC SULFATE 220 MG ( 50 ) CAPSULE PO SCH (08:00)
[2021-06-30] MEDS: INSULIN GLARGINE UD 100 UNITS/ML SYR SUBCUT SCH (12:02)
== END 2021-06-30 15:18 | disposition short-term general hospital (02) | DRG 720 ==
LOC: ER 08:10 → 5EST 10:05 → EDBEDREQ 12:19 → ENRESERV 15:05 → CANRESERV 15:05 → ENRESERV 20:33
PROVIDERS: ADMIT Hospitalist; ATTEND Hospitalist
PROC: 5A1955Z Respiratory Ventilation, Greater than 96 Consecutive Hours (ICD-10-PCS; principal; 2021-06-04)
DX: A41.9 Sepsis, unspecified organism (principal); G93.40 Encephalopathy, unspecified; E43 Unspecified severe protein-calorie malnutrition; J15.6 Pneumonia due to other Gram-negative bacteria; J96.10 Chronic respiratory failure, unspecified whether with hypoxia or hypercapnia; E87.2 Acidosis; N17.9 Acute kidney failure, unspecified; E87.0 Hyperosmolality and hypernatremia; N18.9 Chronic kidney disease, unspecified; R13.10 Dysphagia, unspecified; B37.49 Other urogenital candidiasis; E86.1 Hypovolemia; I25.10 Atherosclerotic heart disease of native coronary artery without angina pectoris; G40.909 Epilepsy, unspecified, not intractable, without status epilepticus; E11.22 Type 2 diabetes mellitus with diabetic chronic kidney disease; E11.65 Type 2 diabetes mellitus with hyperglycemia; I12.9 Hypertensive chronic kidney disease with stage 1 through stage 4 chronic kidney disease, or unspecified chronic kidney disease; R74.01 Elevation of levels of liver transaminase levels; E78.5 Hyperlipidemia, unspecified; Z93.0 Tracheostomy status; Z99.11 Dependence on respirator [ventilator] status; R19.7 Diarrhea, unspecified; Z93.1 Gastrostomy status; Z86.73 Personal history of transient ischemic attack (TIA), and cerebral infarction without residual deficits; Z68.26 Body mass index [BMI] 26.0-26.9, adult; Z20.822 Contact with and (suspected) exposure to COVID-19
CPT/HCPCS: 36415; 36600; 71045; 76770; 80048; 80053; 81003; 82040; 82375; 82550; 82805; 82962; 83605; 84145; 84484; 85025; 86038; 86160; 87015; 87045; 87070; 87077; 87106; 87186; 87426; 87427; 87449; 87804; 89055; 93005; 94002; 94003; 94640; 99291; A6261; C9113; J0360; J0770; J1650; J1815; J2185; J2543; J2765; J3370; J3490; J7030; J7040; J7042; J7050; J7060; J7070; J7608; A4315